=== PATIENT | female | born 1930 | race Caucasian/White ===

== ENCOUNTER 2019-01-05 10:28 | Inpatient (IN) ==
[2019-01-05] MEDS ORDERED: NS 1,000 ML IV ONE (10:52)
[2019-01-05] MEDS ORDERED: TYLENOL PO ONE (11:09)
[2019-01-05] MEDS ORDERED: ZOFRAN IV ONE (11:09)
--- NOTE | 2019-01-05 11:09 | PROVIDER DOCUMENTATION ---
HPI-General Adult - General Chief Complaint: Fever Stated Complaint: VOMITING / FEVER Time Seen by Provider: 01/05/19 10:50 Source: patient Allergies/Adverse Reactions: Patient Allergies Allergy/AdvReac Type Severity Reaction Status Date / Time cephalexin [From Keflex] AdvReac DIARRHEA Verified 01/05/19 10:55 Home Medications: Home Medication List Medication Instructions Recorded Confirmed Last Taken Type NK [No Home Medications] 01/05/19 01/05/19 Unknown History - History of Present Illness -Gen Adult Nature of Presenting Problems: 88yof presents to ED c/o low grade fever, N&V despite being on Bactrim for 3 days for UTI. She denies diarrhea/abd pain/back pain/chest pain/cough. She reports frequent UTIs. Location of Pain/Injury: reports: none Pain Radiation: reports: no radiation Severity: reports: mild Onset/Duration: reports: gradual, 3 days ago Timing: reports: still present Context/Activities at Onset: reports: none Modifying Factors: improves with: nothing Associated Symptoms: reports: fever/chills, nausea, vomiting Similar Symptoms Previously?: Yes (with UTIs) Recently seen or treated by another doctor?: Yes (per PCP for same, placed on Bactrim) Review of Systems - Adult - REVIEW OF SYSTEMS - ADULT Constitutional: reports: see HPI, fever Eyes: reports: no symptoms reported Ears, Nose, Mouth & Throat: reports: no symptoms reported Cardiovascular: reports: no symptoms reported Respiratory: reports: no symptoms reported Gastrointestinal: reports: see HPI, nausea, vomiting Genitourinary: reports: see HPI, frequent UTI's Musculoskeletal: reports: no symptoms reported Integumentary: reports: no symptoms reported Neurological: reports: no symptoms reported Psychiatric: reports: no symptoms reported Endocrine: reports: no symptoms reported Hematologic/Lymphatic: reports: no symptoms reported Allergic/Immunologic: reports: no symptoms reported All Other Systems: Reviewed and Negative Past History - Adult - PAST MEDICAL HISTORY-ADULT Review of Records: reports: Old Records Reviewed, Nursing Assessment Review, Medications Reviewed, Social history reviewed & non-contributory. - PRIOR SURGERIES/PROCEDURES Surgical/Procedure History: reports: hysterectomy - IMMUNIZATION STATUS Childhood Immunizations: See Nurse Assessment Flu Vaccine: See Nurse Assessment - SOCIAL HISTORY Smoking: non-smoker Living Situation: family Physical Exam-General - PHYSICAL EXAM-ADULT Initial Vital Signs Reviewed: Yes (Tachycardia) - CONSTITUTIONAL General Appearance: appears well, alert, no apparent distress - EYES Eyes: PERRL/EOMI, pink conjunctivae - HEAD, EARS, NOSE, MOUTH & THROAT HENMT: normocephalic/atraumatic, moist mucous membranes, normal ENT inspection, TMs normal, pharynx normal - NECK Neck: non-tender, full range of motion, supple, normal inspection - RESPIRATORY Respiratory: chest non-tender, lungs clear, normal breath sounds, no pleuratic chest pain, no respiratory distress, no accessory muscle use - CARDIOVASCULAR Cardiovascular: normal peripheral pulses, regular rate, rhythm, no edema, no gallop, no JVD - GASTROINTESTINAL (ABDOMEN) Abdominal Exam: normal bowel sounds, non tender, soft, no organomegaly - LYMPHATIC Lymphatic: no adenopathy - MUSCULOSKELETAL Back Exam: normal inspection, no CVA tenderness, no vertebral tenderness Extremity: normal range of motion, non-tender, normal gait, normal inspection, no pedal edema - SKIN Integumentary: normal color, normal turgor, warm/dry - NEUROLOGIC 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, grossly normal, no motor/sensory deficits - PSYCHIATRIC Psych/Mental Status: normal mood/affect, normal thought content, normal thought process, oriented x 3 Progress - PLAN OF CARE/RESULTS Progress/Plan/Lab Results: Vital Signs - 8 hr 01/05/19 10:35 Temperature 99.9 F H Pulse Rate 114 H Respiratory Rate 18 Blood Pressure 110/69 O2 Sat by Pulse Oximetry 93 L Orders Category Date Time Status BLOOD CULTURE [BLDCUL] Stat Lab 01/05/19 10:52 Uncollected CBC WITH DIFF [HEME] Stat Lab 01/05/19 10:52 Ordered COMPREHENSIVE METABOLIC PANEL [CHEM] Stat Lab 01/05/19 10:52 Uncollected LACTATE, PLASMA [CHEM] Stat Lab 01/05/19 10:[address] W/POSS RFLX CULT [URINALYSIS] Stat Lab 01/05/19 10:52 Uncollected 0.9% Sodium Chloride Inj [Ns] 1,000 ml Med 01/05/19 10:52 Active IV 999 mls/hr Result Diagrams: 01/05/19 10:52 01/05/19 11:15 - REASSESSMENT Reassessment #1 Time Reassessed: 12:22 (Discussed pt with Dr. Mendiola and reviewed CBC results and VS. He recommends IV Levaquin for UTI and failed OP Tx; likely admit.) Reassessment #2 Time Reassessed: 13:05 (Discussed admit with Dr. Law, Hospitalist, who is in ED. He recommends admit on IV Levaquin.) Departure - Departure Date of Disposition Decision: 01/05/19 Time of Disposition Decision: 13:04 DIAGNOSIS: Failure of outpatient treatment Urinary tract infection Qualifiers: Urinary tract infection type: acute cystitis Hematuria presence: without hematuria Qualified Code(s): N30.00 - Acute cystitis without hematuria Vomiting Qualifiers: Vomiting type: unspecified Vomiting Intractability: non-intractable Nausea presence: with nausea Qualified Code(s): R11.2 - Nausea with vomiting, unspecified Leukocytosis Qualifiers: Leukocytosis type: other Qualified Code(s): D72.828 - Other elevated white blood cell count Disposition: ADMITTED INPATIENT 09 Certified Medical Emergency: Emergent Condition: Stable Referrals and Follow-Ups: Rhonda Rosario MD [Primary Care Provider] - - Critical Care Note This patient required my direct & personal management of CC.: Yes Total Time (mins): 35 Critical Care Statement: This patient required my direct personal management to treat or rule out processes, the absence of which, could potentiallly result in sudden, clinically significant life or limb threatening deterioration. Attestation - Physician/ KRUNAL Attestation Patient care was provided by Advanced Practice Provider:: Yes Advanced Practice Provider:: Ayesha Mcnamara Advanced Practice Provider documentation review:: The Mid-level provider documentation, treatment plan and medical decision making was reviewed by the physician who agrees with all treatment and medical decision making by the MLP. The physician spent face to face time with patient:: No Advanced Practice Provider documentation review:: Supervising physician onsite and consulted in the evaluation and care of this patient. The physician did not have a face to face encounter with the patient.
[2019-01-05 11:27] LABS: BASO# 0.01 X1000 (0.0-0.2); BASO% 0.1 % (0.0-0.8); HEMOGLOBIN 12.1 g/dL (12.0-16.0); IMM GRAN# 0.09 X1000 (0.0-0.04); IMM GRAN% 0.6 % (0.0-0.5); LYMPH# 0.36 X1000 (1.2-3.4); LYMPH% 2.2 % (20.5-51.1); MCH 29.8 PG (27-31); MCHC 32.7 g/dL (33-37); MCV 91.1 FL (81-99); MONO# 0.82 X1000 (0.11-0.59); NEUT# 15.03 X1000 (1.4-6.5); NEUT% 92.1 % (42.2-75.2); PLT 275 X1000 (130-400); RBC 4.06 XMIL (4.2-5.4); RDW 13.4 % (11.5-14.5); WBC 16.31 X1000 (4.8-10.8)
[2019-01-05 11:42] LABS: LYMPHS 8 % (21-51); MONO 3 % (1-9); SEGS 89 % (42-75)
[2019-01-05] MEDS ORDERED: LEVAQUIN 500 MG/D5W 500 MG/100 ML IVPB IV ONE (12:17)
[2019-01-05 12:28] LABS: AGAP 9; ALBUMIN 2.9 g/dL (3.5-5.0); ALKALINE PHOSPHATASE 41 U/L (32-104); BUN 10 mg/dL (8-22); CALCIUM 7.5 mg/dL (8.8-10.2); CHLORIDE 104 mmol/L (98-107); COSMO 267; CREATININE 0.4 mg/dL (0.5-0.9); ESTIMATED GFR > 60; GLUCOSE 132 mg/dL (70-104); GOT 12 U/L (10-30); GPT 8 U/L (10-36); POTASSIUM 3.7 mmol/L (3.5-5.1); SODIUM 133 mmol/L (136-145); TCO2 20 mmol/L (25-35); TOTAL PROTEIN 5.4 g/dL (6.3-8.3)
[2019-01-05 12:53] LABS: BILIRUBIN URINE NEGATIVE (NEGATIVE); BLOOD URINE 4+ (NEGATIVE); CLARITY CLEAR (CLEAR); COLOR YELLOW; GLUCOSE URINE NEGATIVE (NEGATIVE); KETONE URINE TRACE mg/dL (NEGATIVE); LEUKOCYTES URINE TRACE (NEGATIVE); NITRITE URINE NEGATIVE (NEGATIVE); PROTEIN URINE 1+(30 mg/dL) mg/dL (NEGATIVE); UROBILINOGEN URINE NORMAL
[2019-01-05 12:57] LABS: URINE BACTERIA 2+ /HFP; URINE CAST NONE SEEN /LPF; URINE CRYSTAL NONE SEEN /HPF; URINE EPITHELIAL CELLS <10 /HPF (<10); URINE SOURCE CLEAN CATCH; URINE WBC <10 /HPF (<10); URINE YEAST NONE SEEN /HPF
[2019-01-05] MEDS ORDERED: ULTRAM PO ONE (14:45)
[2019-01-05] MEDS ORDERED: ZOFRAN IV PRN (16:42)
[2019-01-05] MEDS: NS 1,000 ML IV SCH (18:12)
--- NOTE | 2019-01-05 21:43 | HISTORY AND PHYSICAL ---
PRIMARY CARE PROVIDER: Rhonda Rosario CHIEF COMPLAINT: Fever and vomiting. HISTORY OF PRESENT ILLNESS: Ms. Mclaughlin is an 88-year-old female who reports no past medical history, takes no home medication, came to the ED for low-grade fever, nausea and vomiting. She states that she went to an Urgent Care on Wednesday and was placed on Bactrim for 3 days. Workup in the ED revealed a white count 16, mild hyponatremia and a positive urinalysis. She was initiated on IV Levaquin, improved with antiemetics and IV fluids. She did not rule in for sepsis. We will admit her to [facility] for failed outpatient treatment of urinary tract infection. PAST MEDICAL HISTORY: Frequent UTIs. PAST SURGICAL HISTORY: Hysterectomy. FAMILY HISTORY: Noncontributory. SOCIAL HISTORY: She lives with family. No tobacco, alcohol or illicit drug use. PHYSICAL EXAMINATION: VITAL SIGNS: Initial temperature is 99.9 degrees, down to 98.6, heart rate 98, respirations 20, blood pressure 100/57, O2 is 95% on room air. GENERAL: Ms. Mclaughlin is an 88-year-old female. She is not very forthcoming with her answers, quite odd demeanor; however, she did answer questions appropriately and shortly and is not in any acute distress. HEENT: Atraumatic, normocephalic. PERRL. NECK: Supple. Trachea midline. CARDIOVASCULAR: S1, S2 appreciated. Positive for murmur. GASTROINTESTINAL: Soft, nontender, nondistended. Positive bowel sounds 4 quads. LOWER EXTREMITIES: Negative for edema. NEUROLOGIC: Patient is awake. She is alert. She does answer questions; however, they are just very short answers, not very forthcoming with additional information, but no focal deficits noted. DIAGNOSTIC DATA: None. LABORATORY DATA: White count 16, hemoglobin and hematocrit 12 and 37, platelet count is 275,000. Sodium 133, potassium 3.7, BUN 10, creatinine 0.4, blood glucose is 132. Urinalysis shows 2+ bacteria, 4+ blood, 1+ protein, negative for nitrites. ASSESSMENT AND PLAN: 1. Failed outpatient treatment of urinary tract infection. We will continue with IV Levaquin, IV fluids. Await her urine culture. 2. Leukocytosis secondary to #1. 3. Clinical dehydration. We will continue IV fluids. 4. Nausea and vomiting. We will continue with antiemetics. Further recommendations to follow physician evaluation, laboratory and diagnostic data. Dictated by LIONEL Gordillo for Luis Law MD cc: MD Rhonda Celis
[2019-01-06] MEDS ORDERED: TYLENOL PO PRN (02:52)
--- NOTE | 2019-01-06 04:39 | HISTORY AND PHYSICAL ---
ADDENDUM: Patient seen and examined by myself. Full note dictated and discussed with nurse practitioner. Patient presented to the hospital with fever, cough, congestion. She has had nausea, vomiting. She has had a UTI and been on Bactrim for 3 days, but feels as though this has not been effective. We are going to admit her to the hospital, change her antibiotics. Continue to follow her symptoms. Restart her home medications when available. Further orders as needed. cc: Luis Law MD
[2019-01-06 06:47] LABS: AGAP 8; BUN 8 mg/dL (8-22); CALCIUM 8.3 mg/dL (8.8-10.2); CHLORIDE 105 mmol/L (98-107); COSMO 269; CREATININE 0.5 mg/dL (0.5-0.9); ESTIMATED GFR > 60; GLUCOSE 101 mg/dL (70-104); POTASSIUM 3.7 mmol/L (3.5-5.1); SODIUM 135 mmol/L (136-145); TCO2 22 mmol/L (25-35)
[2019-01-06 07:27] LABS: BASO# 0.01 X1000 (0.0-0.2); BASO% 0.1 % (0.0-0.8); EOS% 2.1 % (0.0-10.0); HEMOGLOBIN 9.9 g/dL (12.0-16.0); IMM GRAN# 0.01 X1000 (0.0-0.04); IMM GRAN% 0.1 % (0.0-0.5); LYMPH% 10.5 % (20.5-51.1); MCH 29.6 PG (27-31); MCHC 31.9 g/dL (33-37); MCV 92.8 FL (81-99); MONO# 0.53 X1000 (0.11-0.59); MONO% 5.6 % (1.7-9.3); MPV 9.5 FL (7.4-10.4); NEUT# 7.75 X1000 (1.4-6.5); NEUT% 81.6 % (42.2-75.2); PLT 230 X1000 (130-400); RBC 3.34 XMIL (4.2-5.4); RDW 13.6 % (11.5-14.5)
[2019-01-06] MEDS: NS 1,000 ML IV SCH ×2 (09:44→23:18)
[2019-01-06] MEDS ORDERED: LEVAQUIN 500 MG/D5W 500 MG/100 ML IVPB IV SCH (13:00)
[2019-01-06] MEDS ORDERED: PEPCID PO ONE (16:06)
--- NOTE | 2019-01-06 19:35 | PROGRESS NOTE ---
DATE: 01/06/2019 SUBJECTIVE: The patient notes that she feels 1000% better today. Denies any fevers or chills. Denies cough, congestion. Denies any GI or issues currently. OBJECTIVE: Vital Signs: Temperature 98, pulse 58, respiratory 18, blood pressure 105/50. General: Patient is awake, alert. She is in no respiratory distress. HEENT: Normocephalic. Neck: Supple. Cardiovascular: Regular rate. Chest: Clear. Abdomen: Soft, nondistended. Extremities: Moves all extremities. ASSESSMENT: 1. Failed outpatient management of urinary tract infection. We will continue IV Levaquin and IV fluids. 2. Leukocytosis. 3. Nausea and vomiting improved. PLAN: We will continue patient in the hospital. Continue to follow. Overall, she has improved. Hopefully, her urine culture will be sensitive to oral antibiotics and she can discharge home in the a.m.. cc: Luis Law MD
[2019-01-06] MEDS: PEPCID PO SCH (20:23)
[2019-01-06] MEDS ORDERED: MELATONIN PO SCH (21:00)
[2019-01-07 07:01] LABS: HEMATOCRIT 30.6 % (37.0-47.0); HEMOGLOBIN 9.6 g/dL (12.0-16.0); MCHC 31.4 g/dL (33-37); MCV 92.4 FL (81-99); MPV 9.5 FL (7.4-10.4); RBC 3.31 XMIL (4.2-5.4); RDW 13.6 % (11.5-14.5); WBC 5.86 X1000 (4.8-10.8)
[2019-01-07 07:14] VITALS: BP 121/62
[2019-01-07 07:30] LABS: AGAP 9; BUN 7 mg/dL (8-22); CALCIUM 8.2 mg/dL (8.8-10.2); CHLORIDE 109 mmol/L (98-107); COSMO 278; CREATININE 0.4 mg/dL (0.5-0.9); ESTIMATED GFR > 60; GLUCOSE 102 mg/dL (70-104); POTASSIUM 3.6 mmol/L (3.5-5.1); SODIUM 140 mmol/L (136-145); TCO2 23 mmol/L (25-35)
[2019-01-07] MEDS: PEPCID PO SCH (08:30)
--- NOTE | 2019-01-08 03:28 | DISCHARGE SUMMARY ---
ADMISSION DATE: 01/05/2019 DISCHARGE DATE: 01/07/2019 DISCHARGE DIAGNOSES: 1. Urinary tract infection. 2. Leukocytosis secondary to urinary tract infection. 3. Nausea and vomiting. HOSPITAL COURSE: Ms Mclaughlin is an 88-year-old female who was admitted to the hospital after having a failed outpatient treatment for urinary tract infection. She was treated with Bactrim, but that failed to improve her symptoms, and she was noted to have leukocytosis with white blood cell count of 16.31 here at the emergency room. She was treated with IV levofloxacin, with which her condition has improved and her leukocytosis has resolved. She does have anemia, but that is secondary to hemodilution, and needs to be addressed as an outpatient. Since patient's condition has improved, including her nausea vomiting resolved, we are going to let her go home today. She will take levofloxacin 500 mg orally once daily for 5 days to complete therapy for urinary tract infection. DISCHARGE MEDICATIONS: Levofloxacin 500 mg orally once daily for 5 days. CONDITION: Stable. DISPOSITION: Home. FOLLOW-UP: She is advised to follow up with her primary care doctor in approximately 5 days. cc: Rosa Jones MD
== END 2019-01-07 10:00 | disposition home or self-care (01) | DRG 690 ==
LOC: P.MEDSURG 10:28 → P.ED 10:28 → OBSVTOIN 15:58 → SUATTDRO 15:58
PROVIDERS: ATTEND Internal Medicine

== ENCOUNTER 2019-01-15 05:33 | Inpatient (IN) ==
[2019-01-15] MEDS ORDERED: NS 1,000 ML IV ONE ×3 (05:59→15:13)
[2019-01-15] MEDS ORDERED: ZOFRAN IV ONE (06:00)
[2019-01-15 06:40] LABS: INFLUENZA A NEGATIVE (NEGATIVE); INFLUENZA B NEGATIVE (NEGATIVE)
[2019-01-15 06:43] LABS: EOS# 0.01 X1000 (0.0-0.7); EOS% 0.2 % (0.0-10.0); HEMOGLOBIN 13.4 g/dL (12.0-16.0); IMM GRAN# 0.01 X1000 (0.0-0.04); IMM GRAN% 0.2 % (0.0-0.5); LYMPH# 0.21 X1000 (1.2-3.4); LYMPH% 4.9 % (20.5-51.1); MCH 30.1 PG (27-31); MCHC 32.7 g/dL (33-37); MCV 92.1 FL (81-99); MONO# 0.04 X1000 (0.11-0.59); MONO% 0.9 % (1.7-9.3); MPV 9.2 FL (7.4-10.4); NEUT# 4.01 X1000 (1.4-6.5); NEUT% 93.8 % (42.2-75.2); PLT 299 X1000 (130-400); RBC 4.45 XMIL (4.2-5.4); RDW 13.9 % (11.5-14.5); WBC 4.28 X1000 (4.8-10.8)
[2019-01-15 06:45] LABS: BILIRUBIN URINE NEGATIVE (NEGATIVE); BLOOD URINE 1+ (NEGATIVE); GLUCOSE URINE NEGATIVE (NEGATIVE); KETONE URINE NEGATIVE (NEGATIVE); LEUKOCYTES URINE NEGATIVE (NEGATIVE); NITRITE URINE NEGATIVE (NEGATIVE); SP GRAVITY URINE 1.015; UROBILINOGEN URINE NORMAL
[2019-01-15 06:46] LABS: CLARITY CLEAR (CLEAR); COLOR YELLOW; URINE BACTERIA 1+ /HFP; URINE CAST NONE SEEN /LPF; URINE CRYSTAL NONE SEEN /HPF; URINE EPITHELIAL CELLS <10 /HPF (<10); URINE SOURCE CATH; URINE WBC <10 /HPF (<10); URINE YEAST NONE SEEN /HPF
[2019-01-15 06:54] LABS: AGAP 15; ALBUMIN 3.7 g/dL (3.5-5.0); ALKALINE PHOSPHATASE 52 U/L (32-104); BUN 8 mg/dL (8-22); CALCIUM 9.5 mg/dL (8.8-10.2); CHLORIDE 103 mmol/L (98-107); COSMO 271; CREATININE 0.5 mg/dL (0.5-0.9); ESTIMATED GFR > 60; GLUCOSE 118 mg/dL (70-104); GOT 24 U/L (10-30); GPT 8 U/L (10-36); POTASSIUM 4.1 mmol/L (3.5-5.1); SODIUM 136 mmol/L (136-145); TCO2 18 mmol/L (25-35); TOTAL PROTEIN 6.4 g/dL (6.3-8.3)
[2019-01-15 08:09] LABS: MAGNESIUM 1.9 mg/dL (1.5-2.7)
--- NOTE | 2019-01-15 08:13 | Diag Imaging Result Doc PS360 ---
EXAM: CHEST-2 VIEWS INDICATION: r/o sepsis TECHNIQUE: 2 views COMPARISON: 05/05/2018 FINDINGS: There is a dense airspace consolidation in the perihilar region on the right indicating pneumonia. Follow-up chest radiograph after treatment is recommended to exclude an underlying mass. There is also a possible small nodular density in the left mid to upper lung zone not identified previously. There is interstitial thickening bilaterally indicating edema. There is no discrete pleural fluid collection or pneumothorax. The cardiac silhouette is unremarkable. IMPRESSION: 1.Dense airspace consolidation in the perihilar region on the right likely representing pneumonia. 2.Small nonspecific nodular density in the left upper lung. 3.Pulmonary edema. Electronically signed by Jm Turner 01/15/2019 8:10 AM
--- NOTE | 2019-01-15 08:32 | Diag Imaging Result Doc PS360 ---
EXAM: CT ABD/PELVIS W/IV CONT ONLY INDICATION: nausea and vomiting TECHNIQUE: This exam was performed using automated exposure control, adjustment of mA or kV according to patient size, and/or use of iterative reconstruction technique. COMPARISON: 04/08/2018 FINDINGS: There are patchy airspace consolidations at both lung bases, more prominent on the right suggesting pneumonia. There is also a component of pulmonary edema. There is a very small right pleural effusion and trace left effusion. There is dependent atelectasis at the lung bases. There are a couple of calcified stones layering in the gallbladder lumen. There is no evidence of gallbladder wall thickening or pericholecystic inflammatory change. The liver, spleen, pancreas, and adrenal glands are unremarkable. There are a few small renal cysts bilaterally. The kidneys are grossly unremarkable, otherwise. The urinary bladder appears normal. There has been a prior hysterectomy. There is extensive diverticulosis coli, predominantly involving the sigmoid colon, but there is no evidence of diverticulitis. There has been a prior appendectomy. No focal bowel wall thickening is identified and there is no evidence of bowel obstruction. The remainder of the GI tract is grossly unremarkable. No free abdominal gas or significant free fluid is identified. There is nonspecific mild mesenteric edema in the right lower quadrant anterior to the psoas muscle. It does not appear to be associated with bowel. There is no evidence of abscess. There is advanced spondylosis throughout the spine. There has been prior right hip ORIF. IMPRESSION: 1.Patchy airspace consolidation at both lung bases suggesting pneumonia, also with a component of pulmonary edema and atelectasis with very small bibasilar effusions. 2.Uncomplicated diverticulosis coli. 3.Mild nonspecific mesenteric edema in the right lower quadrant that does not appear to be associated with bowel. 4.Other incidental/nonacute findings detailed above. Electronically signed by Jm Turner 01/15/2019 8:29 AM
[2019-01-15] MEDS ORDERED: ZOSYN 3.375 GM in NS 50 ML IV ONE (08:36)
[2019-01-15 08:54] LABS: INR 0.97; PROTIME 13.4 Seconds (11.0-16.0)
[2019-01-15 08:55] LABS: PTT 24.9 Seconds (22.3-41.8)
[2019-01-15 08:56] LABS: BE -2.9 mmoll (-3.0-3.0); BLOOD TYPE ARTERIAL; HCO3-(ACT) 22.6 mmoll (20.0-26.0); METHB 1.4 % (0.0-1.5); O2HB 92.6 % (95.0-99.0); PCO2(98.6) 32 mmHg (35-45); PO2(98.6) 62 mmHg (60-100); SAMPLE BLOOD; SAO2 96.4 % (95.0-100.0); THB 12.3 g/dL (11.5-17.4); pH(98.6) 7.42 (7.35-7.45)
[2019-01-15 08:58] LABS: MODALITY CANNULA
[2019-01-15 08:59] LABS: ALLEN TEST YES
--- NOTE | 2019-01-15 11:47 | EKG Report ---
Test Performed on : 01/15/2019 08:44:52 AM Test Reason : sepsis Blood Pressure : / mmHG Vent. Rate : 112 BPM Atrial Rate : 112 BPM P-R Int : 178 ms QRS Dur : 064 ms QT Int : 318 ms P-R-T Axes : 062 025 050 degrees QTc Int : 434 ms Sinus tachycardia. Otherwise normal ECG No previous ECGs available Unconfirmed Result
[2019-01-15 12:01] LABS: BILIRUBIN URINE NEGATIVE (NEGATIVE); BLOOD URINE 1+ (NEGATIVE); GLUCOSE URINE NEGATIVE (NEGATIVE); KETONE URINE NEGATIVE (NEGATIVE); LEUKOCYTES URINE NEGATIVE (NEGATIVE); NITRITE URINE NEGATIVE (NEGATIVE); PH URINE 6.5; PROTEIN URINE TRACE mg/dL (NEGATIVE); UROBILINOGEN URINE NORMAL
[2019-01-15 12:02] LABS: CLARITY CLEAR (CLEAR); COLOR YELLOW; URINE BACTERIA NEGATIVE /HFP; URINE CAST NONE SEEN /LPF; URINE CRYSTAL NONE SEEN /HPF; URINE EPITHELIAL CELLS <10 /HPF (<10); URINE RBC <10 /HPF (<10); URINE SOURCE CLEAN CATCH; URINE WBC <10 /HPF (<10); URINE YEAST NONE SEEN /HPF
[2019-01-15] MEDS ORDERED: NS 1,000 ML IV SCH (12:15)
[2019-01-15] MEDS ORDERED: ROCEPHIN 1 GM in NS 50 ML IV SCH (12:15)
[2019-01-15] MEDS: TYLENOL PO PRN ×2 (12:21→16:42)
[2019-01-15] MEDS ORDERED: LASIX IV SCH (13:15)
[2019-01-15] MEDS: NS 1,000 ML IV SCH (13:59)
[2019-01-15] MEDS: ZITHROMAX 500 MG/NS 500 MG/250 ML IVPB IV SCH (14:00)
--- NOTE | 2019-01-15 14:16 | HISTORY AND PHYSICAL ---
HISTORY AND PHYSICAL ADDENDUM: CHIEF COMPLAINT: Patient was short of breath, weak, and had fever. HISTORY OF PRESENT ILLNESS: Her workup in the ER revealed dense infiltrate in the right lower lobe consistent with pneumonia. She had recently been admitted for UTI failing outpatient therapy. In any case, the patient was evaluated, and she met criteria for sepsis. She is getting sepsis protocol. PHYSICAL EXAMINATION: LUNGS: She does have rales and bronchial breath sounds at the right base. Rales at the left base. CARDIOVASCULAR: She has a blowing, I feel like, holosystolic murmur heard throughout the precordium. I would say the loudest is at the apex though. PROBLEM LIST: 1. Pneumonia multilobar, failing outpatient therapy. We will continue with empiric antibiotics. I am going to switch her to cefepime just because she has been recently in the hospital and continue azithromycin for atypical coverage. 2. For her murmur and questionable pulmonary edema, we will give her a little bit of Lasix. I am going to cut down on her fluids, and we need to evaluate for any cardiac dysfunction or symptomatic valvular disease with an echocardiogram. 3. We will continue breathing treatments and pulmonary toilet. This is a [id number] encounter note with LIONEL Chirinos. cc: Ish Luu MD
--- NOTE | 2019-01-15 14:42 | HISTORY AND PHYSICAL ---
PRIMARY CARE PHYSICIAN: Dr. Rhonda Rosario. CHIEF COMPLAINT: Chills and fever. She also states that when she woke up this morning she felt weak and passed out. HISTORY OF PRESENTING ILLNESS: This is an 88-year-old female who presented to [facility] ER with complaints of fever, chills, nausea, a headache, generalized weakness, and states that when she woke up and when she tried to get up out of the bed, she passed out. She also states that she lost control of her bowels this morning. Her workup showed a temp on arrival of 98.5. It did go up several hours after arriving to 101.5, currently is at 101.1. Her white blood cell count is 4.28. She did have an elevated plasma lactate at 3.4. Her abdomen and pelvic CT showed patchy airspace consolidation at both lung bases suggesting pneumonia, also with a component of pulmonary edema and atelectasis with a very small bibasilar effusion. So she is admitted to the intensive care unit for further evaluation and treatment. PAST MEDICAL HISTORY: Frequent UTIs, skin cancer, and a heart murmur. PAST SURGICAL HISTORY: Hysterectomy and a cataract removal. FAMILY HISTORY: Reviewed and noncontributory. SOCIAL HISTORY: She currently lives with family. Denies any tobacco, alcohol or illicit drug use. ALLERGIES: Keflex. HOME MEDICATIONS: She was taking Levaquin 500 mg p.o. daily, that will be held, and pantoprazole 20 mg p.o. daily. LABORATORY DATA: Showed a white blood cell count of 4.28, hemoglobin 13.4, hematocrit 41, platelets 299,000. PT and INR of 13.4 and 0.97. ABG of a pH of 7.42, pCO2 of 32, PO2 62, bicarb 22.6, and this was on 2 L via nasal cannula. Sodium 136, potassium 4.1, chloride 103, CO2 18, BUN of 8, creatinine 0.5, glucose 118. Cardiac enzymes x2 sets have been negative. ProBNP of 246. Amylase of 88, lipase 35. Plasma lactate of 3.4. Urinalysis was negative. Influenza A and B were both negative. Chest x-ray showed dense airspace consolidation in the perihilar region on the right, most likely representing pneumonia, nonspecific small nodular density in the left upper lung, and some pulmonary edema. CT of the abdomen and pelvis showed patchy airspace consolidation at both lung bases suggesting pneumonia, also with a component of pulmonary edema and atelectasis with a very small bibasilar effusion, uncomplicated diverticulosis coli, mild nonspecific mesenteric edema in the right lower quadrant that does not appear to be associated with the bowel. EKG was sinus tachycardia at 112. REVIEW OF SYSTEMS: She was positive for fever, chills. Denied any cough or congestion. Denied any chest pain. Denied any nausea, vomiting, constipation, or diarrhea. Denied any burning or hurting with urination. PHYSICAL EXAMINATION: VITAL SIGNS: On arrival, she had a temperature of 98.5 degrees, pulse 103, respirations 28, blood pressure 113/72, saturating 94% on room air. She did spike a temp around 10:45 a.m. this morning at 101.5, currently it is 101.1. GENERAL: This is an 88-year-old female who is lying in the bed and answers questions appropriately. HENT: Normocephalic, atraumatic. Normal ENT inspection. Oropharynx and nares are clear. EYES: Pupils are equal, round, reactive to light and accommodation. Extraocular movements are intact. NECK: Normal inspection. Normal range of motion. LUNGS: With some rhonchi bilaterally. Equal lung expansion and chest wall movement. HEART: Regular rate and rhythm. Has a murmur but no rubs, or gallops. ABDOMEN: Soft, nontender, nondistended. Bowel sounds are present x4 quadrants. MUSCULOSKELETAL: She had 5/5 strength x4 extremities. NEUROLOGICAL: Cranial nerves 2-12 appear grossly intact. ASSESSMENT: 1. Sepsis. 2. Bilateral lower lobe pneumonia. 3. Syncope secondary to generalized weakness. PLAN: She was admitted to the intensive care unit. Placed on a regular diet, incentive spirometry. We are going to check an echocardiogram. Do serial plasma lactate. Recheck a 2-view chest x-ray in the a.m. Lasix 40 mg IV daily, cefepime 2 g IV q.12, normal saline at 75 mL an hour, azithromycin 500 mg IV q.24. Recheck CBC and BMP in the a.m. We are also going to check a sputum for culture. Further orders after seen by attending. Dictated by LIONEL Chirinos for Ish Luu MD cc: LIONEL Chirinos MD Martha Read MTDD
[2019-01-15] MEDS ORDERED: NS 500 ML IV ONE (15:14)
[2019-01-15] MEDS: MAXIPIME 2 GM in NS 100 ML IV SCH (15:21)
[2019-01-15] MEDS: DUONEB (A & A) INH SCH ×3 (15:45→22:51)
[2019-01-15] MEDS ORDERED: NEO-SYNEPHRINE 50 MG in NS 250 ML IV SCH (16:00)
[2019-01-16] MEDS: TYLENOL PO PRN ×3 (00:15→16:14)
[2019-01-16] MEDS: NS 1,000 ML IV SCH ×2 (01:30→17:01)
[2019-01-16] MEDS: MAXIPIME 2 GM in NS 100 ML IV SCH ×2 (01:30→14:25)
[2019-01-16] MEDS: DUONEB (A & A) INH SCH ×2 (04:02→07:55)
[2019-01-16] MEDS: PROTONIX PO SCH (06:10)
[2019-01-16 07:05] LABS: BASO# 0.02 X1000 (0.0-0.2); BASO% 0.1 % (0.0-0.8); EOS# 0.06 X1000 (0.0-0.7); EOS% 0.4 % (0.0-10.0); HEMATOCRIT 31.6 % (37.0-47.0); IMM GRAN# 0.02 X1000 (0.0-0.04); IMM GRAN% 0.1 % (0.0-0.5); LYMPH# 1.44 X1000 (1.2-3.4); LYMPH% 10.5 % (20.5-51.1); MCH 29.5 PG (27-31); MCHC 31.6 g/dL (33-37); MCV 93.2 FL (81-99); MONO# 0.74 X1000 (0.11-0.59); MONO% 5.4 % (1.7-9.3); NEUT# 11.48 X1000 (1.4-6.5); NEUT% 83.5 % (42.2-75.2); PLT 296 X1000 (130-400); RBC 3.39 XMIL (4.2-5.4); RDW 14.5 % (11.5-14.5); WBC 13.76 X1000 (4.8-10.8)
--- NOTE | 2019-01-16 07:16 | Diag Imaging Result Doc PS360 ---
EXAM: CHEST-PORTABLE - 01/16/2019 HISTORY: Hypoxia TECHNIQUE: Portable chest COMPARISON: 01/15/2019 FINDINGS: There is infiltrate on the right which appears overall mildly increased. There is lower lung infiltrate on the left appears stable to mildly increased. There are possible small bilateral pleural effusions. There is no pneumothorax identified. Heart size is normal. IMPRESSION: Bilateral infiltrates, most prominent on the right. Electronically signed by Siva Soto 01/16/2019 7:14 AM
[2019-01-16 08:25] LABS: AGAP 11; BUN 8 mg/dL (8-22); CHLORIDE 106 mmol/L (98-107); COSMO 274; CREATININE 0.4 mg/dL (0.5-0.9); ESTIMATED GFR > 60; GLUCOSE 103 mg/dL (70-104); SODIUM 138 mmol/L (136-145); TCO2 21 mmol/L (25-35)
--- NOTE | 2019-01-16 12:37 | PROGRESS NOTE ---
DATE: 01/16/2019 SUBJECTIVE: She looks less in extremis. OBJECTIVE: Blood pressure is 105/51, heart rate of 120, respiratory rate of 22, temperature 99.2 degrees, 98% on 2 L. Cardiovascular: Regular rate and rhythm. On cardiac examination, she had a blowing holosystolic murmur really heard throughout the precordium. Pulmonary: Bilateral breath sounds clear to auscultation. She did have rales at the bases bilaterally. GI: Soft, nontender. Laboratory Data: White count 13, hemoglobin and hematocrit 10 and 31, platelets 296,000. Potassium is 3. PROBLEM LIST: 1. Right lower lobe pneumonia. She is on cefepime and azithromycin. We will continue to follow. 2. Pulmonary edema. Continue gentle diuresis and monitor. Her blood pressure is marginal but improved. We will continue antibiotics. I have ordered CT to better evaluate her pneumonia. 3. Sepsis with shock. That has also improved. She is off pressors now. We did have to initiate those yesterday and follow. DISPOSITION: Pending her clinical status. cc: Ish Luu MD
[2019-01-16] MEDS: ZITHROMAX 500 MG/NS 500 MG/250 ML IVPB IV SCH (12:41)
[2019-01-16] MEDS: LASIX IV SCH (12:50)
[2019-01-16] MEDS: MOTRIN PO PRN (14:35)
[2019-01-16] MEDS ORDERED: KLOR-CON PO ONE (15:38)
[2019-01-16] MEDS ORDERED: LOPRESSOR IV PRN (15:39)
[2019-01-16] MEDS: ATROVENT NEB INH SCH ×2 (15:40→22:41)
[2019-01-16] MEDS: XOPENEX NEB INH SCH ×2 (15:40→22:41)
[2019-01-16] MEDS ORDERED: NS 500 ML IV ONE (15:40)
--- NOTE | 2019-01-16 16:46 | ECHO REPORT ---
ORDER DATE: 01/16/2019 ECHOCARDIOGRAPHIC MEASUREMENTS: 1. Interventricular septum 1.0. 2. Left ventricular posterior wall 1.0. 3. Diastolic diameter 3.8. 4. Left atrium 3.5. SUMMARY: 1. Atrial fibrillation was noted with heart rate varying from 110 to 125 beats per minute. 2. Aortic valve leaflets were trileaflet. 3. Mitral valve was normal. There is moderate mitral annular calcification. 4. Aortic valve leaflets are trileaflet, calcified. 5. Mitral valve is normal. There is moderate mitral annular calcification. 6. Tricuspid valve was normal. 7. Pulmonic valve was normal. 8. Normal left ventricular cavity size. Concentric left ventricular hypertrophy. Estimated ejection fraction of 65 to 70 percent. Tachycardia could overestimate the left ventricular systolic function. 9. There is mild tricuspid regurgitation. Peak velocity across the tricuspid valve was 3.6 m/sec. 10. Pulmonary artery systolic pressure of 62 mmHg. 11. There is mild mitral regurgitation. 12. Peak velocity across the aortic valve was 4 m/sec with a maximum pressure gradient of 68 mmHg, mean pressure gradient of 44 mmHg. 13. Aortic valve area by VTI was 1 sq cm. There is severe aortic stenosis associated with mild aortic regurgitation. 14. There is left atrial enlargement. 15. Anterior echo-free space suggestive of pericardial fat pad noted. cc: MD Ish Weldon MD
[2019-01-16] MEDS: POTASSIUM CHLORIDE 20 MEQ/SWI 20 MEQ/100 ML IVPB IV SCH ×2 (17:02→19:40)
[2019-01-17] MEDS: MAXIPIME 2 GM in NS 100 ML IV SCH ×2 (02:31→13:35)
[2019-01-17] MEDS: NS 1,000 ML IV SCH ×2 (04:00→19:15)
[2019-01-17] MEDS: ATROVENT NEB INH SCH ×3 (04:04→16:32)
[2019-01-17] MEDS: LOVENOX SUBQ SCH (05:56)
[2019-01-17] MEDS: PROTONIX PO SCH ×2 (05:57→06:20)
[2019-01-17 06:44] LABS: HEMATOCRIT 31.3 % (37.0-47.0); MCH 29.4 PG (27-31); MCHC 31.9 g/dL (33-37); MCV 92.1 FL (81-99); MPV 9.1 FL (7.4-10.4); NEUT% 83.9 % (42.2-75.2); PLT 269 X1000 (130-400); RDW 14.6 % (11.5-14.5); WBC 9.68 X1000 (4.8-10.8)
[2019-01-17 06:45] LABS: BASO# 0.01 X1000 (0.0-0.2); BASO% 0.1 % (0.0-0.8); EOS# 0.31 X1000 (0.0-0.7); EOS% 3.2 % (0.0-10.0); IMM GRAN# 0.04 X1000 (0.0-0.04); IMM GRAN% 0.4 % (0.0-0.5); LYMPH# 0.77 X1000 (1.2-3.4); MONO# 0.43 X1000 (0.11-0.59); MONO% 4.4 % (1.7-9.3); NEUT# 8.12 X1000 (1.4-6.5)
[2019-01-17 07:22] LABS: AGAP 7; BUN 10 mg/dL (8-22); CALCIUM 8.5 mg/dL (8.8-10.2); CHLORIDE 109 mmol/L (98-107); COSMO 274; CREATININE 0.4 mg/dL (0.5-0.9); ESTIMATED GFR > 60; GLUCOSE 115 mg/dL (70-104); POTASSIUM 3.5 mmol/L (3.5-5.1); SODIUM 137 mmol/L (136-145); TCO2 22 mmol/L (25-35)
[2019-01-17] MEDS: MOTRIN PO PRN (08:43)
[2019-01-17] MEDS: LASIX IV SCH (08:43)
[2019-01-17] MEDS: XOPENEX NEB INH SCH ×2 (10:44→16:32)
--- NOTE | 2019-01-17 12:41 | Diag Imaging Result Doc PS360 ---
EXAM: CT THORAX W/CONTRAST 01/17/2019 HISTORY: pneumonia TECHNIQUE: This exam was performed using automated exposure control, adjustment of mA or kV according to patient size, and/or use of iterative reconstruction technique. COMMENT: There is apical pleural thickening and calcification bilaterally. There are patchy groundglass opacities throughout both upper lobes. This is also true of the lingula and middle lobe. There is compressive atelectasis in both lower lobes due to pleural effusions worse on the right than the left. There is a small pericardial effusion which measures 7 mm anteriorly and inferiorly. There is no evidence of aneurysm in the thoracic aorta. There is no evidence of dissection. There is an aorticopulmonary window node exceeding 15 mm in size. There are some precarinal nodes which exceed a centimeter in size as well. There is dense pleural-based opacity in the anterior inferior right upper lobe and in the lingula a lesser extent which may represent foci of pneumonia. There is severe spondylosis and some scoliosis of the thoracic spine with convexity to the left. IMPRESSION: Bilateral pleural effusions with patchy pneumonia. The findings in the lower lung myers are worse than on the previous abdominal study of 01/15/2019 and were not present at the time of the previous abdominal study of 01/18/2018. Mediastinal adenopathy. Electronically signed by Puneet Yarbrough 01/17/2019 12:39 PM
--- NOTE | 2019-01-17 12:55 | EKG Report ---
Test Performed on : 01/17/2019 12:53:00 PM Test Reason : RHYTHEM CHANGE Blood Pressure : / mmHG Vent. Rate : 142 BPM Atrial Rate : 147 BPM P-R Int : 000 ms QRS Dur : 054 ms QT Int : 290 ms P-R-T Axes : 000 051 089 degrees QTc Int : 446 ms Atrial fibrillation. with rapid ventricular response. Low voltage QRS Nonspecific ST and T wave abnormality Abnormal ECG When compared with ECG of 15-JAN-2019 08:44, (Unconfirmed) Atrial fibrillation. has replaced Sinus rhythm. Non-specific change in ST segment in Inferior leads ST now depressed in Lateral leads Nonspecific T wave abnormality now evident in Lateral leads Confirmed by Viktor Shaver MD ([id number]) on 01/21/2019 11:44:56 AM
[2019-01-17] MEDS: TYLENOL PO PRN (13:35)
[2019-01-17] MEDS: ZITHROMAX 500 MG/NS 500 MG/250 ML IVPB IV SCH (14:00)
[2019-01-17] MEDS ORDERED: LOVENOX SUBQ ONE (16:10)
[2019-01-17] MEDS ORDERED: ATROVENT NEB INH PRN (16:27)
[2019-01-17] MEDS ORDERED: XOPENEX NEB INH PRN (16:27)
[2019-01-17 17:03] LABS: AGAP 8; BUN 10 mg/dL (8-22); CALCIUM 8.5 mg/dL (8.8-10.2); CHLORIDE 101 mmol/L (98-107); COSMO 266; CREATININE 0.4 mg/dL (0.5-0.9); ESTIMATED GFR > 60; GLUCOSE 134 mg/dL (70-104); MAGNESIUM 1.7 mg/dL (1.5-2.7); POTASSIUM 2.8 mmol/L (3.5-5.1); SODIUM 132 mmol/L (136-145); TCO2 23 mmol/L (25-35)
[2019-01-17] MEDS: CARDIZEM IV ONE ×2 (17:30→18:56)
--- NOTE | 2019-01-17 17:41 | EKG Report ---
Test Performed on : 01/17/2019 5:31:14 PM Test Reason : RHYTHM CHANGE Blood Pressure : / mmHG Vent. Rate : 115 BPM Atrial Rate : 115 BPM P-R Int : 178 ms QRS Dur : 076 ms QT Int : 326 ms P-R-T Axes : 071 035 046 degrees QTc Int : 450 ms Sinus tachycardia. with premature atrial complexes. Otherwise normal ECG When compared with ECG of 17-JAN-2019 12:53, (Unconfirmed) Sinus rhythm. has replaced Atrial fibrillation. Non-specific change in ST segment in Anterior leads T wave inversion no longer evident in Anterior leads Confirmed by Viktor Shaver MD ([id number]) on 01/21/2019 11:44:28 AM
[2019-01-17] MEDS ORDERED: KLOR-CON PO ONE (18:05)
[2019-01-17] MEDS: KLOR-CON ONE ×2 (19:30→19:32)
[2019-01-17] MEDS: CARDIZEM PO SCH (19:32)
--- NOTE | 2019-01-17 20:43 | PROGRESS NOTE ---
DATE: 01/17/2019 SUBJECTIVE: Patient herself has no complaints. States that she is feeling okay. Still states that she is tired and fatigued. PHYSICAL: Vital Signs: Reviewed. Temperature 99 degrees, pulse 106 and irregular, respiratory rate 18, BP 100/56. General: Patient is awake. She is in no respiratory distress sitting up eat breakfast. HEENT: Normocephalic. Neck: Supple. CV: Irregular rate, irregular rhythm. Chest: Clear, nonlabored. Abdomen: Soft, nondistended. Extremities: Moves all extremities. ASSESSMENT: 1. Atrial fibrillation with rapid ventricular response. We are going to start Cardizem and follow. 2. Sepsis improved likely the cause of her atrial fibrillation, rapid rate. 3. Right lower lobe pneumonia. 4. Pulmonary edema. PLAN: We are going to continue her in the hospital, place her on Cardizem, continue to follow. Continue antibiotics. Further orders as needed. cc: Luis Law MD MTDD
[2019-01-18] MEDS: CARDIZEM PO SCH ×3 (01:34→17:45)
[2019-01-18] MEDS: TYLENOL PO PRN ×2 (01:34→08:52)
[2019-01-18] MEDS: MAXIPIME 2 GM in NS 100 ML IV SCH ×2 (01:34→15:31)
[2019-01-18] MEDS: MOTRIN PO PRN (04:26)
[2019-01-18] MEDS: LOVENOX SUBQ SCH (05:27)
[2019-01-18] MEDS: PROTONIX PO SCH (06:04)
[2019-01-18 06:11] LABS: BASO# 0.01 X1000 (0.0-0.2); BASO% 0.2 % (0.0-0.8); EOS% 5.4 % (0.0-10.0); HEMATOCRIT 29.8 % (37.0-47.0); HEMOGLOBIN 9.5 g/dL (12.0-16.0); IMM GRAN# 0.02 X1000 (0.0-0.04); IMM GRAN% 0.4 % (0.0-0.5); LYMPH# 0.78 X1000 (1.2-3.4); LYMPH% 14.1 % (20.5-51.1); MCHC 31.9 g/dL (33-37); MCV 90.9 FL (81-99); MONO% 9.1 % (1.7-9.3); MPV 9.7 FL (7.4-10.4); NEUT# 3.91 X1000 (1.4-6.5); NEUT% 70.8 % (42.2-75.2); PLT 273 X1000 (130-400); RBC 3.28 XMIL (4.2-5.4); RDW 14.3 % (11.5-14.5); WBC 5.52 X1000 (4.8-10.8)
[2019-01-18 06:31] LABS: AGAP 9; ALBUMIN 2.4 g/dL (3.5-5.0); ALKALINE PHOSPHATASE 57 U/L (32-104); BUN 10 mg/dL (8-22); CALCIUM 8.1 mg/dL (8.8-10.2); CHLORIDE 105 mmol/L (98-107); COSMO 272; CREATININE 0.3 mg/dL (0.5-0.9); ESTIMATED GFR > 60; GLUCOSE 116 mg/dL (70-104); GOT 11 U/L (10-30); GPT 6 U/L (10-36); MAGNESIUM 1.8 mg/dL (1.5-2.7); POTASSIUM 3.5 mmol/L (3.5-5.1); SODIUM 136 mmol/L (136-145); TCO2 22 mmol/L (25-35); TOTAL PROTEIN 5.4 g/dL (6.3-8.3)
[2019-01-18] MEDS: NS 1,000 ML IV SCH ×2 (08:53→21:14)
[2019-01-18] MEDS: LASIX IV SCH (08:54)
--- NOTE | 2019-01-18 09:57 | EKG Report ---
Test Performed on : 01/18/2019 09:46:01 AM Test Reason : A fib Blood Pressure : / mmHG Vent. Rate : 097 BPM Atrial Rate : 097 BPM P-R Int : 150 ms QRS Dur : 072 ms QT Int : 344 ms P-R-T Axes : 072 062 064 degrees QTc Int : 436 ms Sinus rhythm. with marked sinus arrhythmia. Otherwise normal ECG When compared with ECG of 17-JAN-2019 17:31, (Unconfirmed) premature atrial complexes. are no longer present Confirmed by Viktor Shaver MD ([id number]) on 01/21/2019 11:44:07 AM
[2019-01-18] MEDS: ZITHROMAX 500 MG/NS 500 MG/250 ML IVPB IV SCH (13:41)
[2019-01-18] MEDS: ZOFRAN IV PRN (15:08)
--- NOTE | 2019-01-18 22:32 | PROGRESS NOTE ---
DATE: 01/18/2019 SUBJECTIVE: Patient notes that she is feeling okay. The staff does note that she went into atrial fibrillation last night. Currently, she is rate controlled, in fact, she is back in sinus rhythm. The patient states she has some shortness of breath and chest pressure, but that has resolved. PHYSICAL EXAMINATION: Vital signs: Temperature 98 degrees, pulse 96 and regular, respiratory 23, BP 96/51. General: Patient is awake. She is very pleasant. She is in no distress. HEENT: Normocephalic. Neck: Supple. Cardiovascular: Regular rate. Does have a systolic murmur. Chest: Clear, nonlabored. Abdomen: Soft, nondistended. Extremities: Moves all extremities. ASSESSMENT: 1. Hypokalemia. Potassium 2.8. 2. Hyponatremia. Sodium 132. 3. Right lower lobe pneumonia. 4. Atrial fibrillation, currently back in sinus rhythm. 5. Hypotension, stable. 6. Pulmonary edema, stable. 7. Sepsis, improving. PLAN: We will continue patient in the hospital since she went into atrial fibrillation last night. Currently, she is back rate controlled and in sinus rhythm. We will follow. Further orders as needed. cc: Luis Law MD
[2019-01-19] MEDS: CARDIZEM PO SCH ×3 (01:02→17:29)
[2019-01-19] MEDS: MAXIPIME 2 GM in NS 100 ML IV SCH ×2 (01:03→14:09)
[2019-01-19] MEDS: TYLENOL PO PRN (01:15)
[2019-01-19] MEDS: LOVENOX SUBQ SCH (06:06)
[2019-01-19] MEDS: PROTONIX PO SCH (06:06)
[2019-01-19 06:50] LABS: AGAP 8; BUN 8 mg/dL (8-22); CHLORIDE 104 mmol/L (98-107); COSMO 271; CREATININE 0.4 mg/dL (0.5-0.9); ESTIMATED GFR > 60; GLUCOSE 115 mg/dL (70-104); SODIUM 136 mmol/L (136-145); TCO2 25 mmol/L (25-35)
[2019-01-19] MEDS ORDERED: KLOR-CON PO ONE (07:34)
[2019-01-19] MEDS: LASIX IV SCH (09:05)
[2019-01-19] MEDS: NS 1,000 ML IV SCH ×2 (11:30→23:36)
[2019-01-19] MEDS: MOTRIN PO PRN (12:17)
[2019-01-19] MEDS: ZITHROMAX 500 MG/NS 500 MG/250 ML IVPB IV SCH (12:18)
--- NOTE | 2019-01-19 13:36 | Diag Imaging Result Doc PS360 ---
EXAM: CHEST-PORTABLE 01/19/2019 HISTORY: fever TECHNIQUE: AP portable at 1342 COMMENT: There are bilateral pleural effusions. There is patchy alveolar and interstitial opacity throughout both lungs particularly in the right upper lobe. This appears slightly worse than on 01/16/2019 on the right although there is some improvement over the left lower lobe. IMPRESSION: Pneumonia plus minus pulmonary edema. Pleural effusions. Electronically signed by Puneet Yarbrough 01/19/2019 1:33 PM
[2019-01-20] MEDS: CARDIZEM PO SCH ×3 (00:49→19:44)
[2019-01-20] MEDS: NS 1,000 ML IV SCH ×2 (00:49→15:12)
--- NOTE | 2019-01-20 00:57 | PROGRESS NOTE ---
DATE: 01/19/2019 SUBJECTIVE: Patient notes she is still tired and fatigued, still coughing, congested. Still very scared about going out to the floor. PHYSICAL EXAMINATION: Vital Signs: Reviewed. Temperature 99 degrees, pulse 83, respiratory 18, BP 107/57. General: Patient is an elderly female who is currently in no respiratory distress. HEENT: Normocephalic. Neck: Supple. Cardiovascular: Regular rate. Chest: Clear. Abdomen: Soft. Extremities: Moves all extremities. ASSESSMENT: 1. Fever. The patient actually had a fever this afternoon. We are going to recheck chest x-ray, blood culture, urine culture. 2. Right lower lobe pneumonia. 3. Pulmonary edema. 4. Hypokalemia. PLAN: We will replace potassium. Continue to follow. Further orders as needed. We will keep her in the ICU currently given her elevated fever and we will follow. cc: Luis Law MD
[2019-01-20] MEDS: MAXIPIME 2 GM in NS 100 ML IV SCH ×2 (02:03→14:20)
[2019-01-20] MEDS: PROTONIX PO SCH (06:37)
[2019-01-20] MEDS: LOVENOX SUBQ SCH (06:37)
[2019-01-20] MEDS: LASIX IV SCH (09:52)
[2019-01-20] MEDS: ZITHROMAX PO SCH (12:12)
--- NOTE | 2019-01-20 18:43 | PROGRESS NOTE ---
DATE: 01/20/2019 SUBJECTIVE: Patient notes that she is feeling a lot better today. She did bit feel well yesterday. In fact, she had a temperature at 102. She has not had any fever since that time. OBJECTIVE: Vital Signs: Temperature max 102 degrees, temperature current 98.5 degrees. Pulse 103, respiratory rate 18, BP 116/58. General: Patient is awake, alert, currently in no distress. HEENT: Normocephalic. Neck: Supple. Cardiovascular: Regular rate. Chest: Clear. Abdomen: Soft, nondistended. Extremities: Moves all extremities. ASSESSMENT: 1. Right lower lobe pneumonia. 2. Hypokalemia. 3. Sepsis. Appears improved, although she did have a fever yesterday. Her blood pressure has been stable, as has her respiratory status. PLAN: We will continue the patient in the ICU today as she had fever yesterday. Continue to follow. Continue antibiotics, breathing treatments, and oxygen. We will replace her potassium. Further orders as needed. cc: Luis Law MD
[2019-01-21] MEDS: CARDIZEM PO SCH ×3 (01:00→16:43)
[2019-01-21] MEDS: MAXIPIME 2 GM in NS 100 ML IV SCH ×2 (01:00→15:24)
[2019-01-21] MEDS: NS 1,000 ML IV SCH ×2 (03:59→16:43)
[2019-01-21] MEDS: LOVENOX SUBQ SCH (05:33)
[2019-01-21] MEDS: PROTONIX PO SCH (06:02)
[2019-01-21] MEDS ORDERED: KLOR-CON PO SCH (09:00)
[2019-01-21] MEDS: LASIX IV SCH (09:30)
[2019-01-21] MEDS: ZITHROMAX PO SCH (13:15)
[2019-01-21] MEDS: TYLENOL PO PRN (13:18)
--- NOTE | 2019-01-21 19:25 | PROGRESS NOTE ---
DATE: 01/21/2019 SUBJECTIVE: The patient states she feels like she is having chills, having coughing. She is having some shortness of breath. She states she does not feel as well as she did. OBJECTIVE: Vital signs reviewed. T-max 100.6 degrees, T current 98.7 degrees, pulse 92, respiratory rate 18, BP 129/62.General: The patient is awake, alert. She is in no respiratory distress currently. HEENT: Normocephalic. Neck supple. Cardiovascular: Regular rate. No murmurs. Chest clear, nonlabored. No wheezing. Good air movement. Abdomen is soft, nondistended. Extremities: Moves all extremities. ASSESSMENT: 1. Right lower lobe pneumonia with recurrent fever. 2. Hypokalemia. 3. Adult failure to thrive. 4. Pulmonary edema. 5. Recent sepsis with shock, improved. PLAN: We will continue the patient in the hospital. Continue in the ICU for now and we will follow. Continue antibiotics. cc: Luis Law MD
[2019-01-22] MEDS: CARDIZEM PO SCH ×3 (01:07→17:32)
[2019-01-22] MEDS: MAXIPIME 2 GM in NS 100 ML IV SCH ×2 (01:07→13:59)
[2019-01-22] MEDS: PROTONIX PO SCH (06:05)
[2019-01-22] MEDS: LOVENOX SUBQ SCH (06:05)
[2019-01-22 06:47] LABS: HEMATOCRIT 30.4 % (37.0-47.0); HEMOGLOBIN 9.7 g/dL (12.0-16.0); MCH 28.7 PG (27-31); MCHC 31.9 g/dL (33-37); MCV 89.9 FL (81-99); MPV 9.6 FL (7.4-10.4); RBC 3.38 XMIL (4.2-5.4); RDW 13.9 % (11.5-14.5); WBC 7.12 X1000 (4.8-10.8)
[2019-01-22 07:04] LABS: AGAP 11; BUN 7 mg/dL (8-22); CALCIUM 8.3 mg/dL (8.8-10.2); CHLORIDE 99 mmol/L (98-107); COSMO 275; CREATININE 0.3 mg/dL (0.5-0.9); ESTIMATED GFR > 60; GLUCOSE 116 mg/dL (70-104); SODIUM 138 mmol/L (136-145); TCO2 28 mmol/L (25-35)
[2019-01-22 07:28] LABS: OCCULT BLOOD 1 NEGATIVE (NEGATIVE)
[2019-01-22] MEDS: LASIX IV SCH (08:52)
[2019-01-22] MEDS: NS 1,000 ML IV SCH ×2 (08:52→19:38)
[2019-01-22] MEDS ORDERED: KLOR-CON PO ONE (10:22)
[2019-01-22] MEDS: MOTRIN PO PRN (11:33)
[2019-01-22] MEDS: DOXYCYCLINE 100 MG in NS 250 ML IV SCH (14:37)
--- NOTE | 2019-01-22 19:08 | PROGRESS NOTE ---
DATE: 01/22/2019 SUBJECTIVE: Patient still states she does not feel well. She feels fatigued, tired, still short of breath, feels chilly. Denies headaches, blurred vision. Denies any true focal numbness or weakness. OBJECTIVE: Vital Signs: T-max 100 degrees, T-current 98, pulse 98, respiratory 28, BP 144/57. General: Patient is a chronically ill-appearing, elderly female who is in no current respiratory distress. HEENT: Normocephalic. Neck: Supple. Cardiovascular: Regular rate. Chest: Clear. Abdomen: Soft and nondistended. Extremities: Moves all extremities. ASSESSMENT: 1. Cardiac dysrhythmia. She has had a couple of episodes of ventricular dysrhythmia today but only lasting 3 to 4 beats. 2. Right lower lobe pneumonia. She continues to have fever but is trending down. 3. Pulmonary edema. 4. Sepsis. 5. Hypokalemia. PLAN: We will continue patient in the ICU. Continue to follow. Further orders as needed. Replace her potassium. Continue antibiotics and follow her electrical dysrhythmia. cc: Luis Law MD
[2019-01-22] MEDS: TYLENOL PO PRN (19:36)
[2019-01-23] MEDS: DOXYCYCLINE 100 MG in NS 250 ML IV SCH ×2 (00:29→12:14)
[2019-01-23] MEDS: CARDIZEM PO SCH ×3 (01:58→17:52)
[2019-01-23] MEDS: MAXIPIME 2 GM in NS 100 ML IV SCH ×2 (02:12→14:43)
[2019-01-23] MEDS: TYLENOL PO PRN ×2 (04:26→12:15)
[2019-01-23] MEDS: PROTONIX PO SCH (06:20)
[2019-01-23] MEDS: LOVENOX SUBQ SCH (06:20)
[2019-01-23 06:50] LABS: AGAP 7; ALBUMIN 2.1 g/dL (3.5-5.0); ALKALINE PHOSPHATASE 47 U/L (32-104); BUN 10 mg/dL (8-22); CALCIUM 8.3 mg/dL (8.8-10.2); CHLORIDE 104 mmol/L (98-107); COSMO 278; CREATININE 0.3 mg/dL (0.5-0.9); ESTIMATED GFR > 60; GLUCOSE 123 mg/dL (70-104); GOT 19 U/L (10-30); GPT 16 U/L (10-36); MAGNESIUM 1.7 mg/dL (1.5-2.7); POTASSIUM 3.3 mmol/L (3.5-5.1); SODIUM 139 mmol/L (136-145); TCO2 29 mmol/L (25-35); TOTAL PROTEIN 5.3 g/dL (6.3-8.3)
[2019-01-23 06:52] LABS: HEMATOCRIT 28.3 % (37.0-47.0); HEMOGLOBIN 9.1 g/dL (12.0-16.0); MCH 29.2 PG (27-31); MCHC 32.2 g/dL (33-37); MCV 90.7 FL (81-99); MPV 8.9 FL (7.4-10.4); RBC 3.12 XMIL (4.2-5.4); RDW 13.9 % (11.5-14.5); WBC 6.64 X1000 (4.8-10.8)
[2019-01-23] MEDS ORDERED: KLOR-CON PO ONE ×2 (07:38→10:30)
[2019-01-23] MEDS: LASIX PO SCH (11:02)
[2019-01-23] MEDS: NS 1,000 ML IV SCH ×2 (11:06→20:50)
[2019-01-23] MEDS: MOTRIN PO PRN (14:43)
[2019-01-23] MEDS ORDERED: MUCINEX PO ONE (14:49)
--- NOTE | 2019-01-23 15:33 | Diag Imaging Result Doc PS360 ---
CHEST-PORTABLE - 01/23/2019 INDICATION: f/u pna COMPARISON: 01/19/2019 FINDINGS: There is been no change in the multifocal bilateral heterogeneous infiltrates. There are stable trace bilateral pleural effusions. Heart size remains top normal. IMPRESSION: No change from prior. Extensive bilateral infiltrates. Trace bilateral pleural effusions. Electronically signed by Franc March 01/23/2019 3:31 PM
[2019-01-23] MEDS ORDERED: CALMOSEPTINE OINTMENT TOP PRN (18:13)
[2019-01-23] MEDS: ZOFRAN IV PRN (20:48)
[2019-01-23] MEDS: MUCINEX PO SCH (20:49)
[2019-01-23] MEDS ORDERED: MELATONIN PO SCH (21:00)
[2019-01-24] MEDS: CARDIZEM PO SCH ×3 (00:17→17:44)
[2019-01-24] MEDS: MAXIPIME 2 GM in NS 100 ML IV SCH ×2 (00:17→04:22)
[2019-01-24] MEDS: DOXYCYCLINE 100 MG in NS 250 ML IV SCH ×2 (00:17→11:47)
[2019-01-24] MEDS: NS 1,000 ML IV SCH ×3 (00:18→16:20)
[2019-01-24] MEDS: MOTRIN PO PRN ×2 (05:00→11:47)
[2019-01-24] MEDS: LOVENOX SUBQ SCH (05:41)
[2019-01-24] MEDS: PROTONIX PO SCH ×2 (05:41→06:08)
--- NOTE | 2019-01-24 07:41 | PROGRESS NOTE ---
DATE: 01/23/2019 SUBJECTIVE: The patient notes that she is starting to feel somewhat better. Still having a cough, congestion, still fatigued, tired, short of breath. Thankfully, she has not had any fever. OBJECTIVE: Vital Signs: On physical examination, T-max 99.3 degrees, pulse 96, respiratory 22- 28, BP 83/53 to 131/64. General: Patient is awake, alert. She is in no current respiratory distress. HEENT: Normocephalic. Neck: Supple. Cardiovascular: Regular rate. Chest: Relatively clear. No crackles, no wheezing, but poor air movement, equal bilaterally. Abdomen: Soft, nondistended. Extremities: Moves all extremities. Neurologic: No focal changes. ASSESSMENT: 1. Right lower lobe pneumonia. 2. Hypotension. 3. Sepsis. 4. Pulmonary edema. PLAN: We will continue patient on antibiotics. She seems to be improving. She has had a temperature that has been trending down to normal over the past 3 days. We will continue her in the ICU currently due to her low blood pressure. cc: Luis Law MD
[2019-01-24] MEDS: TYLENOL PO PRN (08:21)
[2019-01-24] MEDS: LASIX PO SCH (08:21)
[2019-01-24 08:37] LABS: HEMATOCRIT 30.3 % (37.0-47.0); HEMOGLOBIN 9.8 g/dL (12.0-16.0); MCH 29.3 PG (27-31); MCHC 32.3 g/dL (33-37); MCV 90.4 FL (81-99); RBC 3.35 XMIL (4.2-5.4); RDW 14.4 % (11.5-14.5); WBC 6.52 X1000 (4.8-10.8)
[2019-01-24 08:38] LABS: AGAP 10; BASO# 0.03 X1000 (0.0-0.2); BASO% 0.5 % (0.0-0.8); BUN 9 mg/dL (8-22); CHLORIDE 100 mmol/L (98-107); COSMO 273; CREATININE 0.3 mg/dL (0.5-0.9); EOS# 0.35 X1000 (0.0-0.7); EOS% 5.4 % (0.0-10.0); ESTIMATED GFR > 60; GLUCOSE 113 mg/dL (70-104); IMM GRAN# 0.23 X1000 (0.0-0.04); IMM GRAN% 3.5 % (0.0-0.5); LYMPH# 1.31 X1000 (1.2-3.4); LYMPH% 20.1 % (20.5-51.1); MONO# 0.45 X1000 (0.11-0.59); MONO% 6.9 % (1.7-9.3); MPV 8.8 FL (7.4-10.4); NEUT# 4.15 X1000 (1.4-6.5); NEUT% 63.6 % (42.2-75.2); PLT 399 X1000 (130-400); POTASSIUM 3.6 mmol/L (3.5-5.1); SODIUM 137 mmol/L (136-145); TCO2 27 mmol/L (25-35)
[2019-01-24] MEDS ORDERED: ELOCON CREAM TOP SCH (09:00)
[2019-01-24 09:01] LABS: EOS 2 % (1-10); LYMPHS 20 % (21-51); MONO 4 % (1-9); SEGS 74 % (42-75)
[2019-01-24 09:02] LABS: POIKILOCYTOSIS OCCASIONAL; STOMATOCYTES OCCASIONAL
--- NOTE | 2019-01-24 09:05 | PROGRESS NOTE ---
DATE: 01/24/2019 SUBJECTIVE: The patient continues to have fever, general malaise, still having some cough, and still feeling tired but not short of breath today. OBJECTIVE: Vital Signs: Temperature 99.6 degrees, heart rate 104, respiratory rate 22, blood pressure 103/49, O2 saturation 98% on 3 L nasal cannula. General: This is an 89-year-old female, lying in bed in no acute distress. Cardiovascular: S1, S2 heard. No murmurs, gallops, or rubs. Regular rate and rhythm. Respiratory: Coarse breath sounds still noted in both pulmonary bases. Decreased breath sounds globally. The patient is not using any accessory muscles or having work of breathing. Abdomen: Soft. Nontender to palpation. Bowel sounds present. No organomegaly. Extremities: No clubbing, cyanosis, or edema. Peripheral pulses present in both legs. Neurological: The patient is alert and oriented x3. Moves all 4 extremities. IMAGING AND LABORATORY DATA: White cell count is 6. The labs from today are still pending. The x-ray from yesterday showed no change from prior. There are still multifocal bilateral heterogeneous infiltrates with stable trace pleural effusion. ASSESSMENT AND PLAN: 1. Acute respiratory failure secondary to bilateral pneumonia. The patient has been here 9 days in the hospital. She has received so far, azithromycin, cefepime, doxycycline, and she continues to spike fever. White cell count is not elevated, at least in the last few days, but we do not have any labs from today yet. At this point, considering that she is not responding to the current antibiotic management, I plan to transfer this patient to [facility], get Pulmonary and Infectious Disease consultation. We are going to repeat the CT of the chest to see if there is any worsening of the pneumonia or not. Last CT that we have checked here was a week ago. At this point, will continue with the same antibiotics. 2. Hypotension. At some point, the patient has been on vasopressors, but not on those anymore. That is the reason why she is here in the intensive care unit. As we mentioned before, the patient is not requiring any vasopressors. 3. Sepsis secondary to pneumonia. Will continue with the current management until the patient is evaluated by Infectious Disease. 4. Pulmonary edema. I did not see any pulmonary edema on the x-ray from yesterday. In order to get better visualization of the lung anatomy, we are going to do a CT of the thorax without contrast. 5. Disposition. The patient is going to [facility] for further evaluation and treatment. cc: Augie Menard MD MTDYany
[2019-01-24] MEDS: MUCINEX PO SCH ×2 (09:14→20:49)
--- NOTE | 2019-01-24 09:27 | EKG Report ---
Test Performed on : 01/24/2019 08:44:20 AM Test Reason : routinue Blood Pressure : / mmHG Vent. Rate : 091 BPM Atrial Rate : 091 BPM P-R Int : 162 ms QRS Dur : 072 ms QT Int : 360 ms P-R-T Axes : 044 031 054 degrees QTc Int : 442 ms Sinus rhythm. with premature supraventricular complexes. Otherwise normal ECG When compared with ECG of 18-JAN-2019 09:46, premature supraventricular complexes. are now present Unconfirmed Result
[2019-01-24] MEDS ORDERED: LOPRESSOR IV PRN (12:17)
[2019-01-24] MEDS ORDERED: CALMOSEPTINE OINTMENT TOP PRN (12:17)
[2019-01-24] MEDS ORDERED: MOTRIN PO PRN (12:19)
[2019-01-24] MEDS ORDERED: ZOFRAN IV PRN (12:23)
--- NOTE | 2019-01-24 12:51 | PROVIDER PROGRESS NOTE ---
Progress Note Pulmonary additional note: Case seen and evaluated. Full dictation to follow. See CPOE. Evaluation time >30 minutes.
[2019-01-24] MEDS ORDERED: MAXIPIME 2 GM in NS 100 ML IV SCH (13:00)
[2019-01-24 13:50] LABS: ALLEN TEST NO; BE 3.6 mmoll (-3.0-3.0); BLOOD TYPE ARTERIAL; HCO3-(ACT) 27.7 mmoll (20.0-26.0); METHB 1.3 % (0.0-1.5); O2(CT) 13.9 mL/dL (15.0-23.0); PCO2(98.6) 39 mmHg (35-45); PO2(98.6) 93 mmHg (60-100); SAMPLE BLOOD; SAO2 98.9 % (95.0-100.0); THB 10.2 g/dL (11.5-17.4); pH(98.6) 7.46 (7.35-7.45)
[2019-01-24 13:51] LABS: MODALITY CANNULA
--- NOTE | 2019-01-24 14:48 | INFECTIOUS DISEASE CONSULT REP ---
DATE: 01/24/2019 CONCLUSION: The patient is admitted the hospital with a bilateral pneumonia that has not responded to antimicrobial therapy. The patient may have an immunoglobulin deficiency. Patient also appears to have oral candidiasis. RECOMMENDATIONS: I have discontinued cefepime and doxycycline and put the patient on p.o. Zyvox and IV Zosyn. I am going to order for the patient nystatin swish and swallow. Also immunoglobulin levels were ordered. DISCUSSION: The patient approximately 1 to 2 weeks ago had a urinary tract infection and she became very tired. She also has had some loose stools. The stools have decreased. The patient CBC shows a white count of 6,520, hemoglobin 9.8, and platelet count of 399,000. Creatinine is 0.3. GFR is greater than 60. Liver function studies are normal. Blood and urine cultures are negative. Sputum grew normal reva. Chest x-ray shows bilateral infiltrates. MARKET SURVEY REPRESENTATIVE HISTORY: She is a 4, para 4, AB 0. She has had a hysterectomy and bilateral salpingo-oophorectomy. REVIEW OF SYSTEMS: Eyes and ears: No problems seeing or hearing. Neck: No stiffness. Respiratory: The patient has not complained of coughing or having shortness of breath. GI: The patient did have diarrhea at the beginning of her illness. She has not had nausea or vomiting. : The patient does not complain of any dysuria. She did say that approximately 2 weeks ago she had a urinary tract infection that was treated with an antibiotic. Bones, joints, muscles: No swollen joint or muscle ache. Neurologic: The patient has not had any seizures. She recently has not lost any motor or sensory function. PREVIOUS HOSPITALIZATIONS AND OPERATIONS: She has had 4 labor and deliveries, a hysterectomy, a bilateral salpingo-oophorectomy, and appendectomy. MEDICAL DISEASES: Negative for diabetes mellitus and hypertension. INFECTIOUS DISEASE HISTORY: Negative for pneumonia or UTI. FAMILY HISTORY: Positive for sepsis, myocardial infarction. SOCIAL HISTORY: [place] She is . Has dogs for pets. She does not smoke cigarettes, drink alcoholic beverages, or use illicit drugs. ALLERGIES: The patient says she has an allergy to Keflex. What she had was diarrhea. I would consider that an adverse reaction rather than an allergy. MEDICATIONS: At home include the following, levofloxacin and pantoprazole. PHYSICAL EXAMINATION: Vital Signs: Temperature is 97.8 degrees, pulse 95, respirations 20, blood pressure 127/65. The patient weighs 103 pounds. General: This is a somewhat ill-appearing, elderly female. She is in no acute distress. Head, eyes, ears, nose, and throat: I think she is wearing a wig. I do not see any drainage from the nose or ears. She does have some white coating on her tongue to suggest oral candidiasis. Neck: No meningismus. Lungs: Clear to auscultation. Cardiovascular: Heart rate is regular with a systolic murmur. Abdomen: Soft and nontender. Neurologic: The patient is awake. She can move her extremities. There is no tremor. Integument: No erythema. There were some brown discolorations on the patient's legs. Thank you for the consult. cc: Sai Bennett MD MTDD
[2019-01-24] MEDS: ZOSYN 3.375 GM in NS 50 ML IV SCH ×2 (17:45→23:57)
[2019-01-24] MEDS: MYCOSTATIN SUSP PO SCH ×2 (17:45→20:48)
[2019-01-24] MEDS: ZYVOX PO SCH ×2 (17:45→20:48)
--- NOTE | 2019-01-24 20:37 | CONSULTATION ---
DATE OF CONSULTATION: 01/24/2019 REQUESTING PROVIDER: Dr. Augie Lopez. REASON FOR CONSULTATION: Persistent pneumonia and fever. HISTORY OF PRESENT ILLNESS: This is an 89-year-old, female seen with a medical history of frequent UTIs, skin cancer, and congenital heart murmur. Her previous admission to [place] was from 01/05/2019 to 01/07/2019, with nausea, vomiting, and UTI. She was discharged home with Levaquin. She reported that since she was discharged, she had to stay home for over 4 days because she felt so tired and exhausted. On 01/15/2019, she woke up with diarrhea and worsening weakness, so she went back to the [place] ER. Initial workup in the ER revealed bilateral lower lobe pneumonia with pulmonary edema, atelectasis, and very small bibasilar pleural effusions. Since then, she has been admitted to the [place] ICU for further evaluation and management. Per the progress note from Dr. Lopez, apparently patient already received azithromycin, cefepime, doxycycline during her hospital stay, but she continues to spike fever. So, she was transferred to our facility for Pulmonary and Infectious Disease consultation. She also was on Lasix 40 mg daily either through IV or by mouth since admission. Patient currently is lying in bed with no acute distress noted. She is on nasal cannula at 3 L and she tolerates well. She stated that generally she felt a lot better. She still has some nausea at times and she had 1 episode of vomiting since admission to [place]. She reports no cough, no chest pain, stomachache, or urination discomfort at this time. She apparently was on DuoNeb or Xopenex nebulizer at an earlier time of this hospital stay, but she reported that she cannot tolerate it. She stated this nebulizer drives her crazy and she refused to use it. She reported she has been using the incentive spirometer and flutter pretty frequently, and she feels a lot better after using those tools. PAST MEDICAL HISTORY: 1. Frequent urinary tract infections. 2. Skin cancer, on the left outer side of her nose. 3. Congenital heart murmur. PAST SURGICAL HISTORY: Complete hysterectomy, appendectomy, and cataract removal. SOCIAL HISTORY: The patient lives at home with her family. She has 2 dogs as pets. She has no history of alcohol, tobacco, or illicit drug use. FAMILY HISTORY: Positive for heart attack. ALLERGIES: Keflex. REVIEW OF SYSTEMS: A 10-point review of systems was conducted and the pertinent is listed within the HPI, otherwise noncontributory. PHYSICAL EXAMINATION: Vital Signs: Temperature 97.8 degrees, blood pressure 127/65, pulse 95, respiratory rate 20, oxygen saturation 98% on nasal cannula at 3 L. General: Lying in bed with no acute distress. Very present and cooperative. Appears appropriate. Appears younger to stated age. HEENT: Atraumatic, normocephalic. Oral candidiasis. Trachea midline. Mucosa pink and moist. Respiratory: Even and unlabored, symmetrical excursion. Auscultation revealed diminished breathing sounds bilaterally and early inspiratory crackles bibasilarly. Cardiovascular: Regular rate and rhythm with significant murmur. Gastrointestinal: Soft, flat, nontender. Normoactive bowel sounds in all 4 quadrants. Extremities: No pedal edema. No cyanosis. No clubbing. Dorsalis pedis 1+ bilaterally. Neurologic: Alert and oriented x3. Speech fluent. Follows commands. LABORATORY DATA: White blood cells 6.52, hemoglobin 9.8, hematocrit 30.3, platelets 399,000. Sodium 137, potassium 3.6, chloride 100, carbon dioxide 27, BUN 9, creatinine 0.3, glucose 113. ABG: PH of 7.46, pCO2 of 39, PO2 of 93, hCO3 of 27.7, base excess 3.6, oxyhemoglobin 96.0. IMAGING DATA: The last chest x-ray was taken on 01/23/2019, revealed stable, multifocal, bilateral heterogenous infiltrates, and chest bilateral pleural effusions. ASSESSMENT: This is an 89-year-old, female, with a medical history of frequent urinary tract infections, skin cancer, and congenital heart murmur. She has been admitted since 01/15/2019, to [place] ICU with bilateral lower lobe pneumonia. She was transferred to the [facility] in our facility this morning, for Pulmonary and Infectious Disease consultation considering that she is not responding to the antibiotic management of azithromycin, cefepime, and doxycycline. 1. Acute hypoxic respiratory failure secondary to bilateral pneumonia. 2. Bilateral pneumonia. 3. Pulmonary edema with trace bilateral pleural effusions. PLAN: 1. Continue supplemental oxygen as needed. 2. Continue bronchodilators as needed and antibiotic per Dr. Bennett. 3. Continue GI and DVT prophylaxis. 4. Follow up with ABG, CBC, CMP, immunoglobins lab, blood culture, and CT of thorax with contrast. 5. Further recommendations pending hospital course. Thank you for the courtesy of this consult. Dictated by LIONEL Ivan for Cathy Whitehead MD cc: LIONEL Ivan MD [facility]
[2019-01-24] MEDS: MELATONIN PO SCH (20:48)
[2019-01-24] MEDS ORDERED: DOXYCYCLINE 100 MG in NS 250 ML IV SCH (23:30)
[2019-01-25] MEDS: CARDIZEM PO SCH ×3 (00:34→17:03)
[2019-01-25] MEDS: NS 1,000 ML IV SCH (03:29)
[2019-01-25] MEDS: TYLENOL PO PRN (03:56)
[2019-01-25 05:57] LABS: BASO# 0.04 X1000 (0.0-0.2); BASO% 0.6 % (0.0-0.8); EOS# 0.35 X1000 (0.0-0.7); EOS% 5.3 % (0.0-10.0); HEMATOCRIT 29.9 % (37.0-47.0); HEMOGLOBIN 9.6 g/dL (12.0-16.0); IMM GRAN# 0.12 X1000 (0.0-0.04); IMM GRAN% 1.8 % (0.0-0.5); LYMPH# 1.02 X1000 (1.2-3.4); LYMPH% 15.4 % (20.5-51.1); MCH 28.8 PG (27-31); MCHC 32.1 g/dL (33-37); MCV 89.8 FL (81-99); MPV 9.2 FL (7.4-10.4); NEUT# 4.51 X1000 (1.4-6.5); NEUT% 67.9 % (42.2-75.2); PLT 419 X1000 (130-400); RBC 3.33 XMIL (4.2-5.4); RDW 14.6 % (11.5-14.5); WBC 6.64 X1000 (4.8-10.8)
[2019-01-25] MEDS: ZOSYN 3.375 GM in NS 50 ML IV SCH ×4 (06:04→22:50)
[2019-01-25] MEDS: PROTONIX PO SCH (06:04)
[2019-01-25] MEDS: LOVENOX SUBQ SCH (06:04)
[2019-01-25 06:27] LABS: AGAP 11; ALB/GLOB RATIO 0.7; ALBUMIN 2.3 g/dL (3.5-5.0); ALKALINE PHOSPHATASE 51 U/L (32-104); BUN 6 mg/dL (8-22); CALCIUM 8.7 mg/dL (8.8-10.2); CHLORIDE 100 mmol/L (98-107); COSMO 274; CREATININE 0.4 mg/dL (0.5-0.9); ESTIMATED GFR > 60; GLUCOSE 115 mg/dL (70-104); GOT 21 U/L (10-30); GPT 17 U/L (10-36); POTASSIUM 2.9 mmol/L (3.5-5.1); SODIUM 138 mmol/L (136-145); TCO2 27 mmol/L (25-35); TOTAL BILIRUBIN 0.18 mg/dL (0.20-1.00); TOTAL PROTEIN 5.8 g/dL (6.3-8.3)
--- NOTE | 2019-01-25 08:16 | Diag Imaging Result Doc PS360 ---
CT THORAX W/CONTRAST - 01/25/2019 INDICATION: persistent pneumonia COMPARISON: 01/17/2019 FINDINGS: There has been slight worsening in the bilateral pleural effusions, right greater than left. This is moderate to large on the right measuring about 4.4 cm in depth. On the left this measures about 2.6 in meters in depth. There is mild stable mediastinal lymphadenopathy. Heart size is normal with no pericardial effusion. Upper abdominal images are unremarkable. There are dense multifocal heterogeneous areas of infiltrate are mainly peripheral. This has an upper lobe predominance. There is some passive atelectasis of the lower lobes from the effusions. Airways are clear. There are two compression fractures in the lower thoracic spine that are stable from prior. No acute bony lesions. IMPRESSION: 1. Slight worsening in the pleural effusions. 2. Multifocal heterogeneous bilateral infiltrates that are nonspecific. This may represent an atypical pneumonia, viral pneumonia, or autoimmune process. 3. Stable compression fractures in the thoracic spine. This exam was performed using automated exposure control, adjustment of mA or kV according to patient size, and/or use of iterative reconstruction technique Electronically signed by Franc March 01/25/2019 8:14 AM
[2019-01-25 08:52] LABS: ALLEN TEST NO; BE 5.3 mmoll (-3.0-3.0); BLOOD TYPE ARTERIAL; HCO3-(ACT) 29.1 mmoll (20.0-26.0); METHB 0.7 % (0.0-1.5); O2(CT) 14.8 mL/dL (15.0-23.0); O2HB 97.4 % (95.0-99.0); PCO2(98.6) 43 mmHg (35-45); PO2(98.6) 95 mmHg (60-100); SAMPLE BLOOD; SAO2 100.3 % (95.0-100.0); THB 10.7 g/dL (11.5-17.4); pH(98.6) 7.45 (7.35-7.45)
[2019-01-25 08:53] LABS: MODALITY CANNULA
[2019-01-25] MEDS ORDERED: LASIX PO SCH (09:00)
[2019-01-25] MEDS: ELOCON CREAM TOP SCH (09:22)
[2019-01-25] MEDS: ZYVOX PO SCH ×2 (09:23→20:47)
[2019-01-25] MEDS: MYCOSTATIN SUSP PO SCH ×5 (09:23→20:47)
[2019-01-25] MEDS: MUCINEX PO SCH ×2 (09:23→20:47)
[2019-01-25] MEDS ORDERED: KLOR-CON PO ONE ×2 (09:32→10:50)
--- NOTE | 2019-01-25 10:03 | INFECTIOUS DISEASE PROGRESS NO ---
DATE: 01/25/2019 PRESENT ILLNESS: The patient has a bilateral pneumonia which has not shown much in the way of improvement. The patient has oral candidiasis MEDICATIONS: The patient yesterday was started on Zyvox and Zosyn. The patient also was started on nystatin for her oral candidiasis. PHYSICAL EXAMINATION: Vital Signs: Temperature is 98.4 degrees, pulse 98, respirations 17, blood pressure 145/65. General: This is a somewhat ill-appearing, elderly female. She is in no acute distress. Head, eyes, ears, nose, and throat: She can hear my spoken words and see near objects. Neck: No pain with movement. Lungs: The patient has bibasilar rales. The patient did cough a few times while I was examining her, but she was unable to bring up any sputum. Cardiovascular: Heart rate is regular. Abdomen: Soft and nontender. Neurologic: The patient is awake. She can move her extremities. There is no tremor. LAB AND X-RAY: CT scan of the chest shows bilateral infiltrates and pleural effusions. Blood and urine cultures are negative. Sputum grew out normal reva and I think it looks like it is contaminated with saliva. Liver function studies are normal. Creatinine is 0.4. GFR is greater than 60. Blood gases show a pH of 7.45, a PO2 of 95 and a pCO2 of 43. CBC shows a white count of 6640, hemoglobin 9.6, and platelet count 419,000. ASSESSMENT AND PLAN: Patient has a bilateral pneumonia. 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 She also does have a oral candidiasis. My plan is to continue Zyvox and Zosyn as well as nystatin swish and swallow. The results of the patient's immunoglobulin levels are pending. COMORBIDITIES: The patient is elderly and that is about the only the only comorbidity I can identify. cc: Sai Bennett MD
[2019-01-25] MEDS: POTASSIUM CHLORIDE 20 MEQ/SWI 20 MEQ/100 ML IVPB IV SCH ×2 (10:54→11:45)
[2019-01-25] MEDS: ATROVENT NEB INH PRN ×4 (11:32→23:22)
[2019-01-25] MEDS: XOPENEX NEB INH PRN ×2 (11:32→15:45)
[2019-01-25] MEDS ORDERED: LASIX IV ONE (12:35)
--- NOTE | 2019-01-25 13:10 | PROGRESS NOTE ---
DATE: 01/25/2019 SUBJECTIVE: The patient has no major complaints. Fevers are abated. OBJECTIVE: Vital Signs: Blood pressure 145/62, heart rate 105, respiratory rate 17, temperature 98.3 degrees, saturating 98% on 3 L. Cardiovascular: Regular rate and rhythm. Pulmonary: Bilateral breath sounds. Clear to auscultation. GI: Soft, nontender, nondistended. Bowel sounds are positive. LABORATORY DATA: White count 6.6, hemoglobin and hematocrit 9 and 29, platelets 419,000. PH 7.45, pCO2 of 43, PaO2 of 95. Potassium 2.9. PROBLEM LIST: 1. Acute respiratory failure due to pneumonia. She is improved finally as far as the fevers. She has been transferred here for Pulmonary and Infectious Disease consultation. Dr. Bennett has seen her, and switched her antibiotics to Zyvox and Zosyn, and immunoglobulins are normal. I think to some degree, she may have symptomatic aortic stenosis as far as some of her respiratory issues. Obviously, that is not going to explain her fevers. We will continue treatment and follow. 2. Aortic stenosis, severe. I do not think she wants any particular treatment, but I do think it is contributing to volume overload issues. I will get a Cardiology opinion about treatment options for her. I will give her a little bit of diuretic. We have to be very careful with that with her aortic stenosis. I anticipate continuing to monitor. On cardiac exam, she has a blowing murmur, musical in quality, I felt was holosystolic, but it is definitely heard best on the right upper sternal border. Based on her echocardiogram though, it is aortic stenosis. It is heard throughout the precordium, and does even radiate to the back, but she is a very thin female as well. cc: Ish Luu MD
--- NOTE | 2019-01-25 20:44 | CONSULTATION ---
DATE OF CONSULTATION: 01/25/2019 IMPRESSION: 1. Severe aortic stenosis with calculated aortic valve area 1.0 cm2 by recent echocardiography. Left ventricular ejection fraction normal. Moderate pulmonary hypertension also demonstrated. 2. Hypoxemic respiratory failure with radiographic study showing bilateral scattered patchy infiltrates as well as bilateral pleural effusions right greater than left. Appearance atypical for pulmonary edema. Patient is suspected of having bilateral pneumonia. Pro B- natriuretic peptide level normal on admission. RECOMMENDATIONS: 1. Check pro B-natriuretic peptide level. 2. Diuresis thus far does not appear to have brought about any significant trend toward improvement. I suspect further diuresis does not warranted unless pro B-natriuretic peptide level is significantly elevated. 3. Consider thoracentesis for diagnostic/therapeutic purposes. We will defer this to pulmonary medicine. HISTORY: This 89-year-old, white female with a history of murmur was transferred from [facility] for further management of suspected bilateral pneumonia. She reports that her symptoms prior to admission consisted of a profound fatigue that seemed to start rather abruptly. She denies orthopnea or chest pain. She has not had much cough at all. She had previously been hospitalized at [facility] for urinary tract infection earlier this month but relates that she had some of the same symptoms that brought her in this time at that time. Her evaluation has demonstrated bilateral pulmonary infiltrates that are scattered and patchy and she is being treated for bilateral pneumonia. She was transferred over to [facility] as she was not readily improving and has had pulmonary infectious disease consultations. She is also found on recent echocardiography to have severe aortic stenosis with preserved left ventricular systolic function. There is also moderate pulmonary hypertension with systolic PA pressure around 65 mmHg. Suspicion was raised regarding possible contribution from congestive heart failure and she had been given a few doses of IV Lasix. There does not appear to be improvement manifest. It is noteworthy that her pro B-natriuretic peptide level on admission was normal. She denies any orthopnea or chest pain. She has not had much shortness of breath and only modest cough. There has been no fever. PAST MEDICAL HISTORY: 1. Cardiac murmur. 2. Frequent urinary tract infections. 3. Previous removal of skin cancer from the left side of her nose. 4. Skin cancer left outer side of her nose. PAST SURGICAL HISTORY: Includes hysterectomy appendectomy and cataract procedure. ALLERGIES: She is allergic or intolerant to Keflex. MEDICATIONS PRIOR TO ADMISSION: As listed. SOCIAL HISTORY: She lives at home with family. Her has significant dementia and she is the significant caregiver for him. She has never smoked. She does not use alcohol. FAMILY HISTORY: Negative for premature coronary disease. REVIEW OF SYSTEMS: Pulmonary: Noncontributory beyond history of present illness. Gastrointestinal: Noncontributory beyond history of present illness. Constitutional: Noncontributory beyond history of present illness. Remainder of review of systems negative/noncontributory beyond history present illness with 14 total systems reviewed. PHYSICAL EXAMINATION: General: This is a elderly white female in no distress on supplemental oxygen per nasal cannula. Vital signs: Blood pressure 133/52, heart rate 115, and regular with ECG showing sinus tachycardia. Oxygen and saturation 97% on nasal cannula oxygen at 3 L/minute. HEENT: Extraocular movements appear intact. Mucous membranes moist. Neck: Supple. There is no significant jugular venous distention. Chest: Auscultation of the chest reveals diminished breath sounds at bases bilaterally with early inspiratory crackles bilaterally. Cardiac: Cardiac exam reveals a regular rate and rhythm with a grade 2 to 3/6 crescendo-decrescendo systolic murmur at the right upper sternal border. No gallop could be appreciated. Abdomen: Soft. Bowel sounds are normal. Extremities: Without edema. PERTINENT DATA: Twelve lead EKG demonstrates sinus rhythm and is within normal limits. LABORATORY DATA: Includes white blood cell count of 6.64, hematocrit 29.9, hemoglobin 9.6, platelet count 419,000. Sodium 138, potassium 2.9. Chloride 100, carbon dioxide 27, BUN 6, creatinine 0.4, glucose 115. cc: Jason Cox MD
[2019-01-25] MEDS: MELATONIN PO SCH (20:47)
[2019-01-26] MEDS: CARDIZEM PO SCH ×3 (00:06→17:27)
[2019-01-26] MEDS: ATROVENT NEB INH PRN ×2 (03:05→15:15)
[2019-01-26] MEDS: PROTONIX PO SCH (06:24)
[2019-01-26] MEDS: LOVENOX SUBQ SCH (06:24)
[2019-01-26] MEDS: ZOSYN 3.375 GM in NS 50 ML IV SCH ×4 (06:24→23:54)
[2019-01-26 06:36] LABS: BASO# 0.04 X1000 (0.0-0.2); BASO% 0.5 % (0.0-0.8); EOS# 0.25 X1000 (0.0-0.7); EOS% 3.4 % (0.0-10.0); HEMATOCRIT 31.7 % (37.0-47.0); HEMOGLOBIN 10.3 g/dL (12.0-16.0); IMM GRAN# 0.12 X1000 (0.0-0.04); IMM GRAN% 1.6 % (0.0-0.5); LYMPH# 1.22 X1000 (1.2-3.4); LYMPH% 16.7 % (20.5-51.1); MCH 29.3 PG (27-31); MCHC 32.5 g/dL (33-37); MCV 90.3 FL (81-99); MONO# 0.72 X1000 (0.11-0.59); MONO% 9.8 % (1.7-9.3); NEUT# 4.96 X1000 (1.4-6.5); PLT 496 X1000 (130-400); RBC 3.51 XMIL (4.2-5.4); RDW 14.9 % (11.5-14.5); WBC 7.31 X1000 (4.8-10.8)
[2019-01-26 07:41] LABS: AGAP 15; ALB/GLOB RATIO 0.8; ALBUMIN 2.7 g/dL (3.5-5.0); ALKALINE PHOSPHATASE 58 U/L (32-104); BUN 7 mg/dL (8-22); CHLORIDE 93 mmol/L (98-107); COSMO 265; CREATININE 0.4 mg/dL (0.5-0.9); ESTIMATED GFR > 60; GLUCOSE 115 mg/dL (70-104); GOT 27 U/L (10-30); GPT 20 U/L (10-36); POTASSIUM 4.1 mmol/L (3.5-5.1); SODIUM 133 mmol/L (136-145); TCO2 25 mmol/L (25-35); TOTAL BILIRUBIN 0.22 mg/dL (0.20-1.00); TOTAL PROTEIN 5.9 g/dL (6.3-8.3)
[2019-01-26] MEDS: ELOCON CREAM TOP SCH (08:34)
[2019-01-26] MEDS: MUCINEX PO SCH ×2 (08:34→20:21)
[2019-01-26] MEDS: MYCOSTATIN SUSP PO SCH ×5 (08:34→20:21)
[2019-01-26] MEDS: ZYVOX PO SCH ×2 (08:34→20:21)
--- NOTE | 2019-01-26 13:20 | PROVIDER DOCUMENTATION ---
This chart was entered by Jonah Patel Scribe, acting as scribe for Viktor Shaver MD. HPI-Abdominal Pain/GI Problem - General Chief Complaint: Nausea/Vomiting Stated Complaint: WEAK, CHILLS, BODY ACHES, N/V/D Time Seen by Provider: 01/15/19 08:27 Source: patient, family Allergies/Adverse Reactions: Patient Allergies Allergy/AdvReac Type Severity Reaction Status Date / Time cephalexin [From Keflex] AdvReac DIARRHEA Verified 01/15/19 06:26 Home Medications: Home Medication List Medication Instructions Recorded Confirmed Last Taken Type Levofloxacin 500 mg PO DAILY #5 tab 01/07/19 01/15/19 Unknown Rx Pantoprazole Sodium 20 mg PO DAILY 01/15/19 01/15/19 Unknown History - History of Present Illness-ABD Nature of Presenting Problems: Pt is a 88 yof who presents to the ED with a CC of UTI symptoms. Pt states she was recently seen in the hospital for similar symptoms. Pt states she was put on an antibiotic last week. Pt states she had a fever and chills before going to bed last night and states when she woke up she felt weak and passed out this morning. Pt currently complains of feeling nauseas, a headache, having diarrhea, and weak. Pt states she also lost control of her bowels this morning. Pt denies a cough, any SOB, and vomiting. Review of Systems - Adult - REVIEW OF SYSTEMS - ADULT Constitutional: reports: see HPI, chills, fever Eyes: reports: no symptoms reported Ears, Nose, Mouth & Throat: reports: no symptoms reported Cardiovascular: reports: no symptoms reported Respiratory: reports: no symptoms reported Gastrointestinal: reports: see HPI, nausea, vomiting Genitourinary: reports: no symptoms reported Musculoskeletal: reports: no symptoms reported Integumentary: reports: no symptoms reported Neurological: reports: see HPI, syncope Psychiatric: reports: no symptoms reported Endocrine: reports: no symptoms reported Hematologic/Lymphatic: reports: no symptoms reported Allergic/Immunologic: reports: no symptoms reported All Other Systems: Reviewed and Negative Past History - Adult - PAST MEDICAL HISTORY-ADULT Review of Records: reports: Old Records Reviewed, Nursing Assessment Review, Medications Reviewed, Social history reviewed & non-contributory. Major Childhood Illnesses: reports: denies history Cardiovascular: reports: denies history Respiratory: reports: denies history Gastrointestinal: reports: denies history Obstetrical/Gynecological: reports: denies history Genitourinary: reports: denies history Musculoskeletal: reports: denies history Neurological: reports: denies history Endocrine/Immune: reports: denies history Other Conditions: reports: denies history - PRIOR SURGERIES/PROCEDURES Surgical/Procedure History: reports: appendectomy, hysterectomy - IMMUNIZATION STATUS Childhood Immunizations: See Nurse Assessment Flu Vaccine: See Nurse Assessment - FAMILY HISTORY Family History: reviewed, not pertinent - SOCIAL HISTORY Smoking: denies, non-smoker Substance Use: none/never, denies Alcohol Use Frequency: never Physical Exam-General - PHYSICAL EXAM-ADULT Initial Vital Signs Reviewed: Yes - CONSTITUTIONAL General Appearance: alert, mild distress - EYES Eyes: PERRL/EOMI - HEAD, EARS, NOSE, MOUTH & THROAT HENMT: moist mucous membranes - NECK Neck: non-tender, full range of motion - RESPIRATORY Respiratory: chest non-tender, lungs clear, normal breath sounds, no pleuratic chest pain, no respiratory distress, no accessory muscle use - CARDIOVASCULAR Cardiovascular: normal peripheral pulses, regular rate, rhythm, no edema, no gallop, no JVD, no murmur - GASTROINTESTINAL (ABDOMEN) Abdominal Exam: non tender, soft - MUSCULOSKELETAL Extremity: normal range of motion, non-tender - SKIN Integumentary: normal color, warm/dry - NEUROLOGIC Neurologic: grossly normal, no motor/sensory deficits - PSYCHIATRIC Psych/Mental Status: normal mood/affect, normal thought content, normal thought process, oriented x 3 Progress - PLAN OF CARE/RESULTS Progress/Plan/Lab Results: Vital Signs - 8 hr 01/15/19 05:47 01/15/19 06:58 01/15/19 07:30 Temperature 98.5 F 100.4 F H Pulse Rate 103 H 107 H 109 H Respiratory Rate 28 H 28 H 29 H Blood Pressure 113/72 130/65 133/62 O2 Sat by Pulse Oximetry 94 L 95 93 L 01/15/19 08:46 Temperature Pulse Rate 109 H Respiratory Rate 32 H Blood Pressure 133/72 O2 Sat by Pulse Oximetry 96 Laboratory Results - last 24 hr 01/15/19 01/15/19 01/15/19 05:59 06:13 06:13 WBC 4.28 L RBC 4.45 Hgb 13.4 Hct 41.0 MCV 92.1 MCH 30.1 MCHC 32.7 L RDW Std Deviation 13.9 Plt Count 299 MPV 9.2 Immature Gran % (Auto) 0.2 Neut % (Auto) 93.8 H Lymph % (Auto) 4.9 L Garrett % (Auto) 0.9 L Eos % (Auto) 0.2 Baso % (Auto) 0.0 Immature Gran # (Auto) 0.01 Neut # (Auto) 4.01 Lymph # (Auto) 0.21 L Garrett # (Auto) 0.04 L Eos # (Auto) 0.01 Baso # (Auto) 0.00 PT INR PTT (Actin FS) Specimen Type Sample Site pH pCO2 pO2 HCO3 Base Excess Oxyhemoglobin ABG O2 Sat (Calculated) ABG O2 Saturation ABG Carboxyhemoglobin ABG Methemoglobin Uvaldo Test A-a O2 Difference Total Hemoglobin Lactate Liter Flow Blood Gas Modality FiO2 % Sodium Potassium Chloride Carbon Dioxide Anion Gap BUN Creatinine Estimated GFR/1.73 m2 BUN/Creatinine Ratio Glucose Calculated Osmolality Calcium Magnesium Total Bilirubin AST ALT Alkaline Phosphatase Creatine Kinase Troponin T Total Protein Albumin Globulin Albumin/Globulin Ratio Amylase 88 Lipase Plasma Lactate Urine Source Urine Color Urine Clarity Urine pH Ur Specific [place] Urine Protein Urine Ketones Urine Blood Urine Nitrite Urine Bilirubin Urine Urobilinogen Urine Microscopic RBC Urine WBC Urine Microscopic WBC Ur Epithelial Cells Urine Crystals Urine Bacteria Urine Casts Urine Yeast Urine Glucose Influenza A (Rapid) NEGATIVE Influenza B (Rapid) NEGATIVE 01/15/19 01/15/19 01/15/19 06:13 06:13 06:30 WBC RBC Hgb Hct MCV MCH MCHC RDW Std Deviation Plt Count MPV Immature Gran % (Auto) Neut % (Auto) Lymph % (Auto) Garrett % (Auto) Eos % (Auto) Baso % (Auto) Immature Gran # (Auto) Neut # (Auto) Lymph # (Auto) Garrett # (Auto) Eos # (Auto) Baso # (Auto) PT INR PTT (Actin FS) Specimen Type Sample Site pH pCO2 pO2 HCO3 Base Excess Oxyhemoglobin ABG O2 Sat (Calculated) ABG O2 Saturation ABG Carboxyhemoglobin ABG Methemoglobin Uvaldo Test A-a O2 Difference Total Hemoglobin Lactate Liter Flow Blood Gas Modality FiO2 % Sodium 136 Potassium 4.1 Chloride 103 Carbon Dioxide 18 L Anion Gap 15 BUN 8 Creatinine 0.5 Estimated GFR/1.73 m2 > 60 BUN/Creatinine Ratio 16 Glucose 118 H Calculated Osmolality 271 Calcium 9.5 Magnesium Total Bilirubin 0.30 AST 24 ALT 8 L Alkaline Phosphatase 52 Creatine Kinase Troponin T Total Protein 6.4 Albumin 3.7 Globulin 3.0 Albumin/Globulin Ratio 1.0 Amylase Lipase 35 Plasma Lactate Urine Source CATH Urine Color YELLOW Urine Clarity CLEAR Urine pH 6.0 Ur Specific [place] 1.015 Urine Protein 3+(500 mg/dL) A Urine Ketones NEGATIVE Urine Blood 1+ A Urine Nitrite NEGATIVE Urine Bilirubin NEGATIVE Urine Urobilinogen NORMAL Urine Microscopic RBC 10-20 A Urine WBC NEGATIVE Urine Microscopic WBC <10 Ur Epithelial Cells <10 Urine Crystals NONE SEEN Urine Bacteria 1+ Urine Casts NONE SEEN Urine Yeast NONE SEEN Urine Glucose NEGATIVE Influenza A (Rapid) Influenza B (Rapid) 01/15/19 01/15/19 01/15/19 06:30 06:30 08:30 WBC RBC Hgb Hct MCV MCH MCHC RDW Std Deviation Plt Count MPV Immature Gran % (Auto) Neut % (Auto) Lymph % (Auto) Garrett % (Auto) Eos % (Auto) Baso % (Auto) Immature Gran # (Auto) Neut # (Auto) Lymph # (Auto) Garrett # (Auto) Eos # (Auto) Baso # (Auto) PT INR PTT (Actin FS) Specimen Type Sample Site pH pCO2 pO2 HCO3 Base Excess Oxyhemoglobin ABG O2 Sat (Calculated) ABG O2 Saturation ABG Carboxyhemoglobin ABG Methemoglobin Uvaldo Test A-a O2 Difference Total Hemoglobin Lactate Liter Flow Blood Gas Modality FiO2 % Sodium Potassium Chloride Carbon Dioxide Anion Gap BUN Creatinine Estimated GFR/1.73 m2 BUN/Creatinine Ratio Glucose Calculated Osmolality Calcium Magnesium 1.9 Total Bilirubin AST ALT Alkaline Phosphatase Creatine Kinase 66 Troponin T < 0.010 Total Protein Albumin Globulin Albumin/Globulin Ratio Amylase Lipase Plasma Lactate 3.4 H Urine Source Urine Color Urine Clarity Urine pH Ur Specific [place] Urine Protein Urine Ketones Urine Blood Urine Nitrite Urine Bilirubin Urine Urobilinogen Urine Microscopic RBC Urine WBC Urine Microscopic WBC Ur Epithelial Cells Urine Crystals Urine Bacteria Urine Casts Urine Yeast Urine Glucose Influenza A (Rapid) Influenza B (Rapid) 01/15/19 01/15/19 08:32 08:35 WBC RBC Hgb Hct MCV MCH MCHC RDW Std Deviation Plt Count MPV Immature Gran % (Auto) Neut % (Auto) Lymph % (Auto) Garrett % (Auto) Eos % (Auto) Baso % (Auto) Immature Gran # (Auto) Neut # (Auto) Lymph # (Auto) Garrett # (Auto) Eos # (Auto) Baso # (Auto) PT 13.4 INR 0.97 PTT (Actin FS) 24.9 Specimen Type ARTERIAL Sample Site L RADIAL pH 7.42 pCO2 32 L pO2 62 HCO3 22.6 Base Excess -2.9 Oxyhemoglobin 92.6 L ABG O2 Sat (Calculated) 16.0 ABG O2 Saturation 96.4 ABG Carboxyhemoglobin 2.50 ABG Methemoglobin 1.4 Uvlado Test YES A-a O2 Difference 98.0 Total Hemoglobin 12.3 Lactate 2.30 H Liter Flow 2.0 Blood Gas Modality CANNULA FiO2 % 28.0 Sodium Potassium Chloride Carbon Dioxide Anion Gap BUN Creatinine Estimated GFR/1.73 m2 BUN/Creatinine Ratio Glucose Calculated Osmolality Calcium Magnesium Total Bilirubin AST ALT Alkaline Phosphatase Creatine Kinase Troponin T Total Protein Albumin Globulin Albumin/Globulin Ratio Amylase Lipase Plasma Lactate Urine Source Urine Color Urine Clarity Urine pH Ur Specific [place] Urine Protein Urine Ketones Urine Blood Urine Nitrite Urine Bilirubin Urine Urobilinogen Urine Microscopic RBC Urine WBC Urine Microscopic WBC Ur Epithelial Cells Urine Crystals Urine Bacteria Urine Casts Urine Yeast Urine Glucose Influenza A (Rapid) Influenza B (Rapid) Orders Category Date Time Status Cardiac Monitoring DIRECTED Care 01/15/19 07:32 Active IV Insertion ORDERED Care 01/15/19 07:32 Active Notify MD of + Sepsis Screen NOW Care 01/15/19 07:32 Active Notify Physician As Ordered Care 01/15/19 07:32 Active Saline Loc DIRECTED Care 01/15/19 06:00 Active NPO Diet 01/15/19 06:00 Active CHEST-2 VIEWS [RAD] Stat Exams 01/15/19 07:[address] ABD/PELVIS W/IV CONT ONLY [CT] Stat Exams 01/15/19 07:00 Completed ABG [RESP] Routine Lab 01/15/19 08:35 Completed AMYLASE [CHEM] Stat Lab 01/15/19 06:13 Completed BLOOD CULTURE [BLDCUL] Stat Lab 01/15/19 07:34 Ordered BNP [PRO B-NATRIURETIC PEPTIDE] Stat Lab 01/15/19 08:55 Ordered CBC WITH ELECTRONIC DIFF [HEME] Stat Lab 01/15/19 06:13 Completed CK PROFILE [SP CHEM] Stat Lab 01/15/19 06:30 Completed COMPREHENSIVE METABOLIC PANEL [CHEM] Stat Lab 01/15/19 06:[address] Stat Lab 01/15/19 05:59 Completed LACTATE, PLASMA [CHEM] Lab 01/15/19 10:45 Uncollected LACTATE, PLASMA [CHEM] Lab 01/15/19 13:45 Uncollected LACTATE, PLASMA [CHEM] Q3H Lab 01/15/19 08:30 Completed LIPASE [CHEM] Stat Lab 01/15/19 06:13 Completed MAGNESIUM [CHEM] Stat Lab 01/15/19 06:30 Completed PRO B-NATRIURETIC PEPTIDE Stat Lab 01/15/19 06:13 Stop Req PROTIME WITH INR [COAG] Stat Lab 01/15/19 08:32 Completed PTT [COAG] Stat Lab 01/15/19 08:32 Completed TROPONIN T Stat Lab 01/15/19 06:[address] W/POSS RFLX CULT [URINALYSIS] Stat Lab 01/15/19 06:30 Completed 0.9% Sodium Chloride Inj [Ns] 1,000 ml Med 01/15/19 05:59 Discontinued IV 999 mls/hr Ondansetron [Zofran] Med 01/15/19 06:00 Discontinued 4 mg IV NOW ONE Piperacillin/Tazobactam [Zosyn] 3.375 gm Med 01/15/19 08:36 Active 0.9% Sodium Chloride Inj [Ns] 50 ml IV NOW Oxygen Device Stat Oth 01/15/19 07:32 Active EKG [EKG] Stat Ther 01/15/19 08:40 Ordered Transfer/Admit Order [TRANSFER] Routine Transfer 01/15/19 09:00 Ordered Result Diagrams: 01/26/19 06:00 01/26/19 06:00 - EKG 1 Time of EKG reading by physician:: 08:45 EKG Read and Signed by:: Viktor Shaver EKG Interpretation (*Must complete 3 of following elements*): Normal Rate: 112 Rhythm: Sinus tachycardia Harwood: normal QRS: normal ME Interval: normal ST Wave: normal - XRAY 1 XRAY: Bilateral XRAY Study: Chest Impression: See EMR Report ( EXAM: CHEST-2 VIEWS INDICATION: r/o sepsis TECHNIQUE: 2 views COMPARISON: 05/05/2018 FINDINGS: There is a dense airspace consolidation in the perihilar region on the right indicating pneumonia. Follow-up chest radiograph after treatment is recommended to exclude an underlying mass. There is also a possible small nodular density in the left mid to upper lung zone not identified previously. There is interstitial thickening bilaterally indicating edema. There is no discrete pleural fluid collection or pneumothorax. The cardiac silhouette is unremarkable. IMPRESSION: 1.Dense airspace consolidation in the perihilar region on the right likely representing pneumonia. 2.Small nonspecific nodular density in the left upper lung. 3.Pulmonary edema. Electronically signed by Jm Turner 01/15/2019 8:10 AM 01/15/19 0810 Interpreting Physician: Jm Turner MD Dictated Date/Time: 01/15/19 0808 cc: Viktor Shaver MD; Rhonda Rosario MD) - CT/MRI 1 CT Study: Abdomen, Pelvis Impression: See EMR Report ( EXAM: CT ABD/PELVIS W/IV CONT ONLY INDICATION: nausea and vomiting TECHNIQUE: This exam was performed using automated exposure control, adjustment of mA or kV according to patient size, and/or use of iterative reconstruction technique. COMPARISON: 04/08/2018 FINDINGS: There are patchy airspace consolidations at both lung bases, more prominent on the right suggesting pneumonia. There is also a component of pulmonary edema. There is a very small right pleural effusion and trace left effusion. There is dependent atelectasis at the lung bases. There are a couple of calcified stones layering in the gallbladder lumen. There is no evidence of gallbladder wall thickening or pericholecystic inflammatory change. The liver, spleen, pancreas, and adrenal glands are unremarkable. There are a few small renal cysts bilaterally. The kidneys are grossly unremarkable, otherwise. The urinary bladder appears normal. There has been a prior hysterectomy. There is extensive diverticulosis coli, predominantly involving the sigmoid colon, but there is no evidence of diverticulitis. There has been a prior appendectomy. No focal bowel wall thickening is identified and there is no evidence of bowel obstruction. The remainder of the GI tract is grossly unremarkable. No free abdominal gas or significant free fluid is identified. There is nonspecific mild mesenteric edema in the right lower quadrant anterior to the psoas muscle. It does not appear to be associated with bowel. There is no evidence of abscess. There is advanced sp ondylosis throughout the spine. There has been prior right hip ORIF. IMPRESSION: 1.Patchy airspace consolidation at both lung bases suggesting pneumonia, also with a component of pulmonary edema and atelectasis with very small bibasilar effusions. 2.Uncomplicated diverticulosis coli. 3.Mild nonsp ecific mesenteric edema in the right lower quadrant that does not appear to be associated with bowel. 4.Other incidental/nonacute findings detailed above. Electronically signed by Jm Turner 01/15/2019 8:29 AM 01/15/1929 Interpreting Physician: Jm Turner MD Dictated Date/Time: 01/15/19812 cc: Sundeep Rosales MD; Rhonda Rosario MD) Departure - Departure Date of Disposition Decision: 01/15/19 Time of Disposition Decision: 09:02 DIAGNOSIS: Pneumonia Disposition: ADMITTED INPATIENT 09 Certified Medical Emergency: Emergent Condition: Serious - Critical Care Note This patient required my direct & personal management of CC.: No Attestation - Physician/ KRUNAL Attestation Patient care was provided by Advanced Practice Provider:: No The physician spent face to face time with patient:: Yes Advanced Practice Provider documentation review:: Supervising physician onsite and consulted in the evaluation and care of this patient. The physician did have a face to face encounter with the patient. This chart was documented by the indicated scribe, (Jonah Patel, Scribricky) and accurately reflects the services I performed and decisions made by me, Viktor Shaver MD, as attested by the provider's signature.
--- NOTE | 2019-01-26 14:09 | PROGRESS NOTE ---
DATE: 01/26/2019 SUBJECTIVE: Patient has no major complaints. OBJECTIVE: Vital Signs: Blood pressure is 119/48, heart rate 18, temperature 98.3 degrees. She has not had any temperature since the . Cardiovascular: She has a blowing I feel pansystolic, but it is kind of a musical quality, at least a 3/6 heard I think throughout the precordium, but increased om right upper sternal border and increased at the axilla. GI: Soft, nontender, nondistended. Bowel sounds are positive. LABORATORY DATA: White count 7, hemoglobin and hematocrit 10 and 31, platelets 496. Basic looked okay, except for sodium was 133. PROBLEM LIST: 1. Acute respiratory failure due to pneumonia. We will continue treatment and follow. She has been seen by Dr. Bennett and Dr. Whitehead. She is on Zyvox and Zosyn, and she is much improved. We will continue to wean oxygen and follow. 2. Severe aortic stenosis. The patient does not want any surgery. She says she is 89 years old and she is not going to get instrumentation. I do think thoracentesis is reasonable, but I do not think the patient will allow us to do a thoracentesis on her at this point. I defer to Cardiology and Pulmonary to convince her otherwise. DISPOSITION: I think we need to start on mobilizing her PT. She has been up in the chair, doing well. Her goal is to get back home, so we will continue to follow closely. cc: Ish Luu MD
[2019-01-26] MEDS: XOPENEX NEB INH PRN (15:15)
[2019-01-26] MEDS ORDERED: LASIX IV ONE (19:03)
--- NOTE | 2019-01-26 19:40 | PROGRESS NOTE ---
DATE: 01/26/2019 SUBJECTIVE: Patient reports feeling gradually better. She denies chest discomfort or shortness of breath. OBJECTIVE: Vital Signs: Blood pressure 132/56, heart rate 115, oxygen saturation 96% on nasal cannula oxygen 3 L/minute. Neck: Jugular venous distention cannot be appreciated. Lungs: Auscultation of the chest reveals diminished breath sounds in the right base. Cardiac: Regular rate and rhythm with 2 to 3/6 crescendo/decrescendo systolic murmur at the right upper sternal border. There is no diastolic murmur. No gallop could be appreciated. Abdomen: Soft. Bowel sounds are normal. Extremities: Without edema. LABORATORY DATA: Includes a white blood cell count 7.31, hematocrit 31.7, hemoglobin 10.3, platelet count 496,000. Sodium 133, potassium 4.1, chloride 93, carbon dioxide 25, BUN 7, creatinine 0.4, glucose 115. Pro B-natriuretic peptide level yesterday evening was 961, which is elevated above normal range to a mild degree, and elevated compared to previous value of 246 obtained on 01/15/2019. IMPRESSION: 1. Respiratory failure. Suspected due to pneumonia. 2. Severe aortic stenosis. The patient has received intravenous fluids and this may have generated some superimposed congestive heart failure. RECOMMENDATIONS: 1. Diurese gently further. 2. Consider right thoracentesis for both diagnostic and therapeutic purposes. 3. The patient appears to be a reasonable candidate for transcatheter aortic valve replacement procedure for aortic stenosis and she was advised of this. Once she is clinically improved, arrangements will be considered to have her evaluated for possible transcatheter aortic valve replacement in the near future. cc: Jason Cox MD
[2019-01-26] MEDS: MELATONIN PO SCH (20:21)
[2019-01-26] MEDS ORDERED: TUSSIONEX LIQUID PO ONE (23:10)
[2019-01-27] MEDS: CARDIZEM PO SCH ×3 (01:30→17:46)
[2019-01-27 06:04] LABS: BASO# 0.05 X1000 (0.0-0.2); BASO% 0.9 % (0.0-0.8); EOS# 0.45 X1000 (0.0-0.7); EOS% 7.7 % (0.0-10.0); HEMATOCRIT 28.8 % (37.0-47.0); HEMOGLOBIN 9.3 g/dL (12.0-16.0); IMM GRAN# 0.08 X1000 (0.0-0.04); IMM GRAN% 1.4 % (0.0-0.5); LYMPH# 1.42 X1000 (1.2-3.4); LYMPH% 24.2 % (20.5-51.1); MCH 29.2 PG (27-31); MCHC 32.3 g/dL (33-37); MCV 90.3 FL (81-99); MONO# 0.64 X1000 (0.11-0.59); MONO% 10.9 % (1.7-9.3); MPV 8.9 FL (7.4-10.4); NEUT# 3.22 X1000 (1.4-6.5); NEUT% 54.9 % (42.2-75.2); PLT 474 X1000 (130-400); RBC 3.19 XMIL (4.2-5.4); RDW 14.7 % (11.5-14.5); WBC 5.86 X1000 (4.8-10.8)
[2019-01-27 06:30] LABS: AGAP 8; BUN 6 mg/dL (8-22); CALCIUM 8.9 mg/dL (8.8-10.2); CHLORIDE 96 mmol/L (98-107); COSMO 268; CREATININE 0.4 mg/dL (0.5-0.9); ESTIMATED GFR > 60; GLUCOSE 110 mg/dL (70-104); POTASSIUM 3.5 mmol/L (3.5-5.1); SODIUM 135 mmol/L (136-145); TCO2 31 mmol/L (25-35)
[2019-01-27] MEDS: ZOSYN 3.375 GM in NS 50 ML IV SCH ×4 (06:33→23:19)
[2019-01-27] MEDS: PROTONIX PO SCH (06:33)
[2019-01-27] MEDS: LOVENOX SUBQ SCH (06:33)
--- NOTE | 2019-01-27 07:02 | Diag Imaging Result Doc PS360 ---
EXAM: CHEST-1 VIEW HISTORY: SOB TECHNIQUE: Chest single view COMPARISON: 01/23/2019 FINDINGS: There are increased interstitial markings throughout both lungs. No change in the small bilateral pleural effusions with basilar atelectasis. No cardiomegaly. The appearance of the chest is similar to the prior exam. IMPRESSION: Stable exam. Electronically signed by Mario Woody 01/27/2019 7:00 AM
[2019-01-27] MEDS: ELOCON CREAM TOP SCH (08:10)
[2019-01-27] MEDS: MUCINEX PO SCH ×2 (08:10→20:36)
[2019-01-27] MEDS: MYCOSTATIN SUSP PO SCH ×5 (08:10→23:11)
[2019-01-27] MEDS: ZYVOX PO SCH ×2 (08:11→20:37)
--- NOTE | 2019-01-27 11:56 | PROGRESS NOTE ---
DATE: 01/27/2019 SUBJECTIVE: This morning, Ms. Mclaughlin refers to be feeling a lot better. She was sitting up in a chair. She still has some oxygen on. The daughter was at the bedside at the time of the encounter. OBJECTIVE: Vital signs: Blood pressure is 121/53, pulse of 87, respiration is 18, temperature 97.9 degrees. General: Ms. Mclaughlin is an 89-year-old female. She was sitting up in a chair, no distress. HEENT: Mucosa is pink and moist. Anicteric. Acyanotic. Neck: Supple. Chest: Good air entry bilateral. Some few crackles in the posterior lung myers bilaterally. Cardiovascular: Regular rate and rhythm. There is a 3/6 early systolic murmur in the right parasternal space in the 2nd intercostal space with radiation to the neck. Abdomen: Soft, nontender. Bowel sounds present. Extremities: No pedal edema. Central nervous system: Patient is awake, alert, and oriented. LABORATORY DATA: 1. WBC is 5.86, hemoglobin is 9.3, platelet count of 474,000. 2. Chemistry is also reviewed, completely within normal range. IMAGING: A chest x-ray this morning continues to show increased interstitial markings throughout both lungs. No change in the small pleural effusions with bibasilar atelectasis. MEDICATIONS: Have also been reviewed, unremarkable. INTAKE AND OUTPUT: Urine output was 3590. The patient is currently negative balance of 2717. OTHER IMAGING STUDIES: Reviewed, included: A CT scan of the chest did show slight worsening in the pleural effusion. This was on 01/25/2019. There were also multifocal heterogeneous bilateral infiltrates that are nonspecific. This may represent atypical pneumonia versus viral pneumonia or autoimmune process. There were also stable fractures in the thoracic spine. ASSESSMENT: 1. Acute hypoxemic respiratory failure secondary to combination of a bilateral pleural effusions and pneumonia. Patient is on antimicrobial therapy. I think she definitely needs a tap to have a better idea of the etiology of these effusions. 2. Bilateral pleural effusions, worse on the right than the left. We presume this is probably related to her cardiac issues. However, I think it is reasonable to tap her, so will order a thoracentesis for today. 3. Severe aortic stenosis. Cardiology is on board. There is a plan for possible transcatheter aortic valve replacement evaluation when patient is clinically stable. 4. Atrial fibrillation on presentation. Currently in sinus and under normal rate. The patient is on Cardizem. 5. Diastolic heart failure. PLAN: In general, I think Ms Mclaughlin seems to be doing a lot better. Her respiratory status has significantly improved. She is currently on 2 L of nasal cannular, occasionally goes even on room air, saturating about 95 to 99 percent. We going to sample the pleural fluid and send it for analysis. If is a transudative or even an exudative noncomplicated effusion, I think Ms Mclaughlin can be discharged to rehab today to continue with her physical scientologist. She would definitely need to follow up with Cardiology for the severe aortic stenosis management on an outpatient basis. cc: Nate Medeiros MD
--- NOTE | 2019-01-27 14:36 | INFECTIOUS DISEASE PROGRESS NO ---
DATE: 01/27/2019 PRESENT ILLNESS: The patient has bilateral pneumonia and small bilateral pleural effusions. The patient also has oral candidiasis. MEDICATIONS: The patient has been on Zyvox and Zosyn now for 7 days. She also is on nystatin for oral candidiasis. PHYSICAL EXAMINATION: Vital Signs: Temperature is 97.9 degrees, pulse 87, respirations 18, blood pressure 121/53. General: This is a somewhat ill-appearing elderly female. She is in no acute distress. Head, Eyes, Ears, Nose, and Throat: She can hear my spoken words and see near objects. I do not see any white coating on her tongue. Neck: No pain with movement. Lungs: There were a few bibasilar rales. Cardiovascular: Heart rate is regular. Abdomen: Soft and nontender. Neurologic: The patient is alert. She can move her extremities. She does not have a tremor. LAB AND X-RAY: CBC shows a white count of 5860, hemoglobin 9.3, and platelet count 474,000 creatinine is 0.4. GFR is greater than 60. Blood and urine cultures are sterile. Sputum grew normal reva. IgG and IgA are normal. Chest x-ray shows increased interstitial markings bilaterally. ASSESSMENT AND PLAN: The patient has bilateral pneumonia with small pleural effusions. The patient also has oral candidiasis. I plan on continuing her current medications, namely Zyvox, Zosyn, and nystatin swish and swallow. The patient is to go down today to radiology for a thoracentesis. If the pleural fluid results do not help make a diagnosis, I think the patient would be a candidate for bronchoscopy with possible transbronchial lung biopsy. COMORBIDITIES: The patient is elderly. cc: Sai Bennett MD
[2019-01-27 15:14] LABS: INR 1.1; PROTIME 14.3 Seconds (11.0-16.0); PTT 27.6 Seconds (22.3-41.8)
--- NOTE | 2019-01-27 17:22 | Diag Imaging Result Doc PS360 ---
EXAM: CHEST-2 VIEWS INDICATION: INSPIRATION AND EXPIRATION TECHNIQUE: 2 views COMPARISON: 01/27/2019 FINDINGS: There is no evidence of pneumothorax status post right thoracentesis. The right pleural effusion has significantly decreased in size status post right thoracentesis. The left pleural effusion is stable. There is better aeration of the right lung base as a result of the thoracentesis. Increased interstitial markings and patchy consolidations bilaterally are stable, otherwise. IMPRESSION: No evidence of pneumothorax status post right thoracentesis. Electronically signed by Jm Turner 01/27/2019 5:19 PM
--- NOTE | 2019-01-27 17:32 | Diag Imaging Result Doc PS360 ---
EXAM: US THORACENTESIS W/IMAGE GUIDE INDICATION: large right pleural effusion TECHNIQUE: COMPARISON: None. FINDINGS: Risks, benefits, and alternatives were discussed with the patient and informed consent was obtained. The patient was prepped and draped in sterile fashion and local anesthesia was achieved with 1% lidocaine solution. Using ultrasound guidance, a large bore catheter was inserted into the right pleural space and 700 mL of enrique serous fluid was aspirated. There were no known complications. A postprocedural chest radiograph showed no pneumothorax. IMPRESSION: Technically successful ultrasound-guided right thoracentesis with no known complications. Electronically signed by Jm Turner 01/27/2019 5:29 PM
[2019-01-27] MEDS ORDERED: XOPENEX NEB INH PRN (17:43)
[2019-01-27 18:01] LABS: BODY FLUID SOURCE PLEURAL FLUID; MONOS 30 %; POLYS 70 %; SPECIMEN PLEURAL FLUID; WBC BF 4185 /cumm
[2019-01-27 18:02] LABS: PH BODY FLUID 7.5
[2019-01-27 18:15] LABS: AMYLASE BODY FLUID 41 U/L; GLUCOSE BODY FLUID 113 mg/dL; LDH BODY FLUID 173 U/L; TOTAL PROT BODY FLUID 3.5 g/dL
[2019-01-27] MEDS ORDERED: LASIX IV ONE (19:30)
--- NOTE | 2019-01-27 19:58 | CARDIOLOGY PROGRESS NOTE ---
DATE: 01/27/2019 SUBJECTIVE: The patient diuresed over the last 48 hours and had thoracentesis performed this morning. She reports feeling some improvement, although she still requires oxygen. She denies chest pain or shortness of breath on supplemental oxygen per nasal cannula. OBJECTIVE: Blood pressure 137/63, heart rate 108, oxygen saturation 99% on room air. There is no significant jugular venous distention. Chest: Auscultation reveals a few bibasilar crackles. Cardiac: Grade 3/6 crescendo/decrescendo systolic murmur at the right upper sternal border. Second heart sound is very soft and difficult to hear. Extremities: Without edema. LABORATORY DATA: Includes white blood cell count of 5.86, hematocrit 28.8, hemoglobin 9.3, platelet count 474,000. Sodium 135, potassium 3.5, chloride 96, carbon dioxide 31, BUN 6, creatinine 0.4, glucose 110. IMPRESSION: 1. Hypoxemic respiratory failure with pulmonary infiltrates and bilateral pleural effusions. Infiltrates patchy and atypical for pulmonary edema, ad concerning for pneumonia. 2. Suspect tendency for congestive heart failure in setting of severe aortic stenosis. This may very well be contributed to by intravenous fluid administration during hospital stay, as her pro B-natriuretic peptide level was near normal on admission and elevated during her stay. 3. Atrial fibrillation reported on previous ECG. However, ECGs reviewed and ECG did not reveal atrial fibrillation, but rather sinus tachycardia with premature atrial contractions. I cannot find any atrial fibrillation on her telemetry strips nor any of her 12-lead EKGs obtained during this hospital stay. RECOMMENDATIONS: 1. Gently diurese further, and monitor chest x-ray and labs. 2. Discontinue diltiazem and start low-dose metoprolol. 3. Ultimately, patient will need to be considered for TAVR, when she is clinically improved. She is not willing to have cardiac surgery, but is open to being considered for TAVR procedure. cc: Jason Cox MD
[2019-01-27] MEDS: MELATONIN PO SCH (20:37)
[2019-01-27] MEDS: TYLENOL PO PRN (23:27)
[2019-01-28] MEDS: ZOSYN 3.375 GM in NS 50 ML IV SCH ×4 (05:41→22:57)
[2019-01-28] MEDS: PROTONIX PO SCH ×2 (05:41→06:22)
[2019-01-28] MEDS: LOVENOX SUBQ SCH (05:41)
--- NOTE | 2019-01-28 07:19 | Diag Imaging Result Doc PS360 ---
EXAM: CHEST-PORTABLE 01/28/2019 HISTORY: dyspnea TECHNIQUE: AP portable at 0538 COMMENT: There is a pleural effusion on the left. There are patchy alveolar opacities bilaterally particularly in the apices. Compared to 01/27/2019 there has been slight improvement particularly with regard to the right upper lobe. IMPRESSION: Pulmonary edema and/or pneumonia with left pleural effusion. Electronically signed by Puneet Yarbrough 01/28/2019 7:17 AM
--- NOTE | 2019-01-28 07:31 | Diag Imaging Result Doc PS360 ---
EXAM: CHEST-1 VIEW 01/27/2019 HISTORY: post thoracentesis TECHNIQUE: AP portable upright at 2241 COMMENT: There is patchy alveolar and interstitial opacity bilaterally. This appears slightly worse in the right upper lobe than on 01/27/2019. The pleural fluid collection on the left has not changed significantly. IMPRESSION: Worsened pneumonia versus pulmonary edema. Electronically signed by Puneet Yarbrough 01/28/2019 7:29 AM
[2019-01-28] MEDS: MUCINEX PO SCH ×2 (08:47→20:09)
[2019-01-28] MEDS: ZYVOX PO SCH ×2 (08:47→20:09)
[2019-01-28] MEDS: MYCOSTATIN SUSP PO SCH ×4 (08:48→20:08)
[2019-01-28] MEDS: TOPROL XL PO SCH (08:48)
--- NOTE | 2019-01-28 09:59 | PROGRESS NOTE ---
DATE: 01/28/2019 SUBJECTIVE: This morning, Ms. Mclaughlin refers to be doing fairly okay. Denies any new complaints. According to her, her breathing is significantly getting better. Ms. Mclaughlin also underwent a right-sided thoracentesis yesterday I understand 700 mL of enrique serous fluid was removed from the right hemithorax. Postoperatively, no complications. A chest x- ray after the complication did not show any pneumothorax. This morning, she feels a lot better. Ms. Mclaughlin refers to be having diarrhea. OBJECTIVE: Vital signs: Blood pressure is 106/57, pulse of 99, respiration is 18, temperature is 98.2 degrees. The patient is saturating 100% on 2 L of nasal cannula. General: Ms. Mclaughlin is an 89-year-old female. She is in bed. No distress. HEENT: Mucosa is pink and moist. Anicteric. Acyanotic. Neck: Supple. No JVD. Chest: Air entry is bilaterally reduced. Some few bilateral inspiratory crackles. No wheezing, no rhonchi. Cardiovascular: Regular rate and rhythm. There is a crescendo decrescendo murmur in the right 2nd intercostal space that radiates to the neck. GI: Abdomen is soft, is nontender, bowel sounds present. Extremities: No pedal edema. INFORMATION TECHNOLOGY ADVISOR: The patient is awake, alert, oriented. There is no focal neurological deficit. LABORATORY DATA: None for today. IMAGING DATA: A chest x-ray this morning shows pulmonary edema and/or pneumonia with left pleural effusion. There has been slight improvement with regard to the right upper lobe. The patient's I's and O's show urine output 600. She is currently negative balance of 3921. ASSESSMENT: 1. Acute hypoxemic respiratory failure secondary to combination of bilateral pleural effusions and pneumonia. 2. Bilateral pleural effusion, worse on the right than the left. Patient underwent thoracentesis yesterday, and 700 mL of enrique serous fluid was removed. The fluid analysis is consistent with an uncomplicated parapneumonic effusion. We are still pending the culture. Patient will continue on the current antimicrobial coverage. Infectious Disease is on board. 3. Severe aortic stenosis. Cardiology is on board. There is a plan for possible outpatient TAVR evaluation when patient is clinically stable. 4. Paroxysmal atrial fibrillation, currently in sinus. The patient is on Cardizem. 5. Diastolic heart failure. We will continue with current recommendations from Cardiology. Patient is euvolemic. 6. Diarrhea. The patient is currently on antibiotics. We are going to sample it to rule out any C. difficile. cc: Nate Medeiros MD
[2019-01-28] MEDS: ELOCON CREAM TOP SCH (11:50)
[2019-01-28] MEDS: TYLENOL PO PRN (15:53)
[2019-01-28] MEDS: MELATONIN PO SCH (20:09)
[2019-01-29] MEDS: LOVENOX SUBQ SCH (05:39)
[2019-01-29] MEDS: ZOSYN 3.375 GM in NS 50 ML IV SCH ×4 (05:39→23:37)
[2019-01-29] MEDS: PROTONIX PO SCH ×2 (05:39→06:06)
[2019-01-29] MEDS: TOPROL XL PO SCH (08:02)
[2019-01-29] MEDS: MYCOSTATIN SUSP PO SCH ×4 (08:02→20:24)
[2019-01-29] MEDS: ELOCON CREAM TOP SCH (08:02)
[2019-01-29] MEDS: ZYVOX PO SCH ×2 (08:02→20:23)
[2019-01-29] MEDS: MUCINEX PO SCH ×2 (08:02→20:23)
[2019-01-29] MEDS: CULTURELLE PO SCH ×2 (09:15→20:23)
[2019-01-29] MEDS: IMODIUM PO PRN ×2 (09:15→20:23)
--- NOTE | 2019-01-29 10:07 | PROGRESS NOTE ---
DATE: 01/29/2019 SUBJECTIVE: This morning, Ms. Mclaughlin refers to be doing a lot better. She had just completed physical therapy. She says she feels great and wanted to dance. The patient continues to have diarrhea. OBJECTIVE: Vital Signs: Blood pressure is 119/63, pulse of 95, respirations are 20, temperature is 98.6 degrees, the patient was saturating 100% on 2 L. General Examination: Ms. Mclaughlin is an 89-year-old, female. She was sitting up in a chair. No distress. HEENT: Mucosa is pink and moist. Anicteric. Acyanotic. Neck: Supple. Chest: Air entry was bilaterally reduced. There were a few inspiratory crackles. No rhonchi, no wheezing. Cardiovascular: Regular rate and rhythm. There is a 3/6 crescendo-decrescendo murmur in the right second intercostal space, parasternal, radiating to the neck. GI: Abdomen is soft and nontender. Bowel sounds present. Extremities: No pedal edema. FISH TECHNOLOGIST: The patient is awake, alert, and oriented. Laboratory Data: None for today. No imaging studies today. Medications: Have also all been reviewed. Microbiology Data: The stool WBC was few. Clostridium difficile toxin negative. ASSESSMENT: 1. Acute hypoxemic respiratory failure on presentation, improved. We think this is due to a combination of bilateral effusions and pneumonia. 2. Bilateral pleural effusion, worse on the right. The patient is status post thoracentesis 2 days ago with 700 mL of enrique serous fluid removed. Fluid analysis is consistent with uncomplicated parapneumonic effusion. We are still pending the cultures. Patient is on broad- spectrum intravenous antibiotics. Infectious disease is on board. We will repeat a chest x- ray tomorrow to follow it up. 3. Severe aortic stenosis. Cardiology is on board. There is a plan for outpatient transcatheter aortic valve replacement evaluation. 4. Paroxysmal atrial fibrillation, currently rate controlled. 5. Diastolic heart failure, stable. The patient is euvolemic. 6. Diarrhea with negative Clostridium difficile. We think it is due to antibiotic side effects. The patient will be started on loperamide and probiotics. 7. Generalized weakness and deconditioning. Physical therapy is on board. Disposition. Ms. Mclaughlin is clinically stable. We will be pending final recommendation in terms of antimicrobial from infectious disease and get her to a rehab. cc: Nate Medeiros MD MTDD
[2019-01-29] MEDS ORDERED: ATIVAN PO ONE (17:27)
[2019-01-29] MEDS: MELATONIN PO SCH (20:23)
[2019-01-30] MEDS: PROTONIX PO SCH ×2 (05:15→06:10)
[2019-01-30] MEDS: LOVENOX SUBQ SCH (05:15)
[2019-01-30] MEDS: ZOSYN 3.375 GM in NS 50 ML IV SCH (05:15)
[2019-01-30 06:52] LABS: AGAP 11; ALBUMIN 2.4 g/dL (3.5-5.0); BUN 5 mg/dL (8-22); CALCIUM 8.8 mg/dL (8.8-10.2); CHLORIDE 99 mmol/L (98-107); COSMO 274; CREATININE 0.4 mg/dL (0.5-0.9); ESTIMATED GFR > 60; GLUCOSE 112 mg/dL (70-104); MAGNESIUM 2.1 mg/dL (1.5-2.7); PHOSPHORUS 2.6 mg/dL (2.7-4.5); POTASSIUM 3.4 mmol/L (3.5-5.1); SODIUM 138 mmol/L (136-145); TCO2 28 mmol/L (25-35)
[2019-01-30 08:03] LABS: BASO# 0.08 X1000 (0.0-0.2); BASO% 1.4 % (0.0-0.8); EOS# 0.45 X1000 (0.0-0.7); EOS% 8.1 % (0.0-10.0); HEMATOCRIT 29.9 % (37.0-47.0); HEMOGLOBIN 9.6 g/dL (12.0-16.0); IMM GRAN# 0.02 X1000 (0.0-0.04); IMM GRAN% 0.4 % (0.0-0.5); LYMPH# 1.83 X1000 (1.2-3.4); LYMPH% 32.8 % (20.5-51.1); MCH 29.3 PG (27-31); MCHC 32.1 g/dL (33-37); MCV 91.2 FL (81-99); MONO# 0.45 X1000 (0.11-0.59); MONO% 8.1 % (1.7-9.3); MPV 8.8 FL (7.4-10.4); NEUT# 2.75 X1000 (1.4-6.5); NEUT% 49.2 % (42.2-75.2); PLT 505 X1000 (130-400); RBC 3.28 XMIL (4.2-5.4); RDW 14.5 % (11.5-14.5); WBC 5.58 X1000 (4.8-10.8)
--- NOTE | 2019-01-30 08:34 | INFECTIOUS DISEASE PROGRESS NO ---
DATE: 01/30/2019 PRESENT ILLNESS: The patient has bilateral pneumonia with accompanying pleural effusions. The patient also has oral candidiasis. MEDICATIONS: The patient has been on Zyvox and Zosyn now for 10 days, and also she is receiving nystatin for her oral candidiasis. PHYSICAL EXAMINATION: Vital Signs: Temperature is 98.3 degrees, pulse 92, respirations 17, blood pressure 126/69. General: This is an ill-appearing, elderly female. She is in no acute distress. HEENT: She can hear my spoken words and see near objects. She does not have any white coating on her tongue now. Neck: No pain with movement. Lungs: Bibasilar rales were present. Cardiovascular: Heart rate is regular with a systolic murmur. Abdomen: Soft and nontender. Neurologic: The patient is alert. She can move her extremities. She does not have a tremor. IMAGING AND LABORATORY DATA: Chest x-ray shows improvement in the patient's bilateral opacity. Stool for culture, Clostridium difficile, and for O and P are all negative. The patient's pleural fluid has a white count of 4185, of which 70% are polymorphonuclears cells. The culture of the pleural fluid is negative. ASSESSMENT AND PLAN: The patient has bilateral pneumonia with small pleural effusions. She also has oral candidiasis. The patient is going to be discharged to rehab today. I plan on stopping the Zyvox and Zosyn, and instead I have ordered for the patient, Levaquin 500 mg by mouth daily for 7 days. Some of the side effects of the antibiotic, including rash, diarrhea, seizures, and tendon rupture have been explained to the patient, who agrees with treatment. In addition, I plan to continue the patient's nystatin 5 mL swish and swallow 4 times daily for also 7 days. I plan to have the patient come to my office in 2 weeks, at which time she will be examined, and also a repeat chest x-ray will be ordered. I have also asked for a CBC to be done today, in addition to the creatinine that I have which was 0.4. The patient's IgG and IgA levels were normal. COMORBIDITIES: The patient is elderly. She also has aortic stenosis, and she may be a candidate to do a transcatheter placement of the valve. cc: Sai Bennett MD
[2019-01-30] MEDS ORDERED: LEVAQUIN PO SCH (09:00)
--- NOTE | 2019-01-30 09:13 | Diag Imaging Result Doc PS360 ---
EXAM: CHEST-2 VIEWS HISTORY: hypoxia TECHNIQUE: Chest two views COMPARISON: 01/28/2019 FINDINGS: The lungs are hyperexpanded. No cardiomegaly. Small bilateral pleural effusions. There are increased interstitial markings scattered throughout both lungs. No consolidation. There are several compressed thoracic vertebra. IMPRESSION: Emphysema with bilateral infiltrates and small pleural effusions. Electronically signed by Mario Woody 01/30/2019 9:11 AM
[2019-01-30] MEDS: TOPROL XL PO SCH (09:35)
[2019-01-30] MEDS: MUCINEX PO SCH (09:35)
[2019-01-30] MEDS: CULTURELLE PO SCH (09:35)
[2019-01-30] MEDS: MYCOSTATIN SUSP PO SCH ×2 (09:35→13:20)
[2019-01-30] MEDS: ELOCON CREAM TOP SCH (09:36)
--- NOTE | 2019-01-30 11:38 | DISCHARGE SUMMARY ---
ADMISSION DATE: 01/15/2019 DISCHARGE DATE: 01/30/2019 DIAGNOSES: 1. Acute hypoxic respiratory failure on presentation, which has improved, most likely due to a combination of bilateral effusions and pneumonia. 2. Bilateral pleural effusion, status post right thoracentesis on 01/27/2019 with 700 mL of fluid removed. 3. Severe aortic stenosis, followed by cardiology with a plan for outpatient transcatheter aortic valve replacement evaluation. 4. Paroxysmal atrial fibrillation, rate controlled. 5. Diastolic heart failure with an ejection fraction of 65 to 70 percent per echocardiogram. 6. Diarrhea, with negative Clostridium difficile. 7. Oral candidiasis. 8. Electrolyte imbalances. 9. Sepsis, resolved. DIAGNOSTICS: 1. On 01/15/2019, CT of the abdomen and pelvis revealed patchy airspace consolidation at both lung bases suggesting pneumonia with a component of pulmonary edema and atelectasis, with small bibasilar effusions, uncomplicated diverticulosis. 2. On 01/15/2019, chest x-ray revealed dense airspace consolidation in the perihilar region on the right representing pneumonia, small nonspecific nodular density in the left upper lung with pulmonary edema. 3. On 01/16/2019, chest x-ray revealed bilateral infiltrates, more prominent on the right. 4. On 01/17/2019, CT of the chest revealed bilateral pleural effusions with patchy pneumonia with findings in the lower lung myers worse than on 01/15/2019. 5. On 01/19/2019, chest x-ray revealed pneumonia plus or minus pulmonary edema and pleural effusions. 6. Chest x-ray on 01/23/2019 revealed no change from prior extensive bilateral infiltrates, trace bilateral pleural effusions. 7. On 01/25/2019, CT of the chest revealed worsening pleural effusions, bilateral infiltrates that are nonspecific that may represent atypical pneumonia, bilateral pneumonia, or autoimmune process. 8. On 01/27/2019, chest x-ray revealed stable exam with increased interstitial markings throughout both lungs. No change in the small bilateral pleural effusions with basilar atelectasis. No cardiomegaly. The appearance of the chest is similar to exam on 01/23/2019. 9. Chest x-ray on 01/30/2019 revealed emphysema with bilateral infiltrates and small pleural effusions. PROCEDURES: On 01/27/2019, ultrasound-guided thoracentesis per radiology with 700 mL of enrique serous fluid aspirated with post chest x-ray revealing no pneumothorax. MICROBIOLOGY: 1. Blood cultures x2 on 01/15/2019 and 01/19/2019 with no growth after 5 days. 2. Sputum culture revealed normal reva. 3. Urine culture on 01/19/2019 revealed no growth. 4. Stool for O and P, trichrome stain, stool for white blood cells, stool culture all with none seen. 5. Stool for Clostridium difficile toxin is negative. 6. Pleural fluid routine culture revealed no growth. Pleural fluid Gram stain revealed no bacteria, no yeast, with 1+ white blood cells. HOSPITAL COURSE: Ms. Mclaughlin presented to the emergency room complaining of shortness of breath, weakness, and fever. She was found to be septic with multilobar pneumonia for which she was initially treated with cefepime and azithromycin. This was changed to Zyvox and Zosyn on January [address] Bennett, infectious disease, and then discontinued and she will be discharged on Levaquin 500 mg p.o. for 7 days. Thankfully, she has improved. As a matter of fact, she stated on the that she felt like she could dance. She has remained afebrile for the last 6 days with a normal white count since January 17. Cultures from the thoracentesis as stated above, with chest x-ray stable and no pneumothorax status post thoracentesis. She has been followed by cardiology for severe aortic stenosis. There is a plan for outpatient transcatheter aortic valve replacement evaluation once she is medically stable and discharged from rehab. She does have diarrhea which is felt to be secondary to antibiotics. Thankfully, C. difficile was negative. She was found to have oral candidiasis for which she has been treated with oral nystatin. She has been followed by physical therapy which she has tolerated well and thankfully, today, she is ready for discharge to rehab. DISCHARGE VITAL SIGNS: Blood pressure is 126/69, with a heart rate of 92, respirations are 18, temperature is 98.3 degrees oral, and O2 saturations are 98-99% on 2 L nasal cannula. PHYSICAL EXAMINATION: Eyes: Pupils are equal, round, react to light. EOMs are intact. Sclerae anicteric. HENT: Head is normocephalic, atraumatic. Mucous membranes are moist. Neck: Supple. Trachea midline. No JVD. Cardiovascular: Regular rate and rhythm. S1 and S2 appreciated. She does have a 3/6 crescendo-decrescendo murmur heard best at the right second intercostal space. It does radiate to the neck. She has no lower extremity edema. Calves are nontender bilaterally, with peripheral pulses palpable x4 extremities. Pulmonary: Breath sounds are clear with no increased work of breathing noted. Chest rises and falls symmetric with respiration. Chest wall is nontender to palpation. Gastrointestinal: Abdomen is soft, nontender, nondistended. Bowel sounds in all 4 quadrants. Neurologic: She is alert and oriented x3. Skin: Warm and dry. DISCHARGE MEDICATIONS: 1. Toprol-XL 25 mg p.o. daily. 2. Melatonin 5 mg p.o. at bedtime. 3. Imodium 2 mg p.o. q.4 hours p.r.n. diarrhea. 4. Levaquin 500 mg p.o. daily x7 days. 5. Culturelle 1 p.o. b.i.d. 6. Protonix 20 mg p.o. daily. 7. Nystatin 5 mL swish and swallow 4 times a day. FOLLOWUP: 1. Dr. Jason Cox in [address] Sai Bennett in 2 weeks. DISPOSITION: She is being discharged to [facility] in stable condition with family members present. TIME SPENT: This is a greater than 30 minute discharge. Dictated by LIONEL Larson for Nate Medeiros MD cc: LIONEL Larson MD
[2019-01-30 15:44] VITALS: BP 128/72
== END 2019-01-30 14:30 | DRG 871 ==
LOC: P.ED 05:33 → SUATTDRO 09:05 → P.ICU 09:05 → 2N 01-24 12:07
PROVIDERS: ATTEND Internal Medicine